=== PATIENT | female | born 1975 | race Caucasian/White ===

== ENCOUNTER 2020-12-08 09:09 | Inpatient (IN) | payer MEDICAID ==
[2020-12-01 15:10] LABS: BASOPHILS # (AUTO) 0.1 X10'3 (0-0.2); BASOPHILS % (AUTO) 0.9 % (0-1); EOSINOPHILS # (AUTO) 0.1 X10'3 (0-0.9); EOSINOPHILS % (AUTO) 1.1 % (0-6); LYMPHOCYTES # (AUTO) 2.2 X10'3 (1.1-4.8); LYMPHOCYTES % (AUTO) 26.4 % (21-51); MEAN CORPUSCULAR HEMOGLOBIN 28.8 PG (27.0-31.0); MEAN CORPUSCULAR HGB CONC 32.1 g/dL (33.0-36.5); MEAN CORPUSCULAR VOLUME 89.8 FL (78-98); MEAN PLATELET VOLUME 7.6 FL (7.4-10.4); MONOCYTES # (AUTO) 0.8 X10'3 (0-0.9); MONOCYTES % (AUTO) 9.2 % (2-12); NEUTROPHILS # (AUTO) 5.3 X10'3 (1.8-7.7); NEUTROPHILS % (AUTO) 62.4 % (42-75); PRE OP HEMATOCRIT 39.4 % (35.0-45.0); PRE OP HEMOGLOBIN 12.7 g/dL (12.0-16.0); PRE OP PLATELET COUNT 428 X10'3 (140-440); RED BLOOD COUNT 4.39 X10'6 (4.20-5.60); RED CELL DISTRIBUTION WIDTH 18.1 % (11.5-14.5)
[2020-12-01 15:25] LABS: ALBUMIN 3.4 G/DL (3.4-5.0); ALKALINE PHOSPHATASE 82 IU/L (46-116); BLOOD UREA NITROGEN 14 MG/DL (7-18); BUN/CREATININE RATIO 13.5 (6.6-38.0); CALCIUM 8.8 MG/DL (8.5-10.1); CHLORIDE 105 MMOL/L (99-107); CREATININE 1.04 MG/DL (0.40-0.90); PRE OP ALT 19 U/L (30-65); PRE OP ANION GAP 11 (8-16); PRE OP AST 13 U/L (10-37); PRE OP BILIRUB, TOTAL 0.2 MG/DL (0.0-1.0); PRE OP GLUCOSE 100 MG/DL (70-104); PRE OP SODIUM 141 MMOL/L (135-145); TOTAL CARBON DIOXIDE 25.4 MMOL/L (24-32); TOTAL PROTEIN 6.9 G/DL (6.4-8.2); eGFR 58 ML/MIN
[2020-12-01 15:27] LABS: PRE OP POTASSIUM 3.2 MMOL/L (3.4-5.1)
[~2020-12-08] VITALS: Ht 154.9 cm; Wt 60.7 kg
[2020-12-08] VITALS (18 sets, daily range): BP systolic 109–143; BP diastolic 47–82
[~2020-12-08 09:09] MED LIST: ALBU8.5H8 INH; ALEN70TA60 PO; BUDE10.2 INH; CALC-336 PO; CHOL10006 PO; CYCL-1 PO; FERR-116 PO; FOLI0.4T14 PO; HYDR-3965 PO; LIDOcaine 1% (10mg/ml) 2ml vial ONE; METH2.5T PO; OMEP-50 PO; PRED5TAB PO; TRAZ300T2 PO; VANCOMYCIN INJ 1000 MG in NORMAL SALINE 250ml IV.SOLN IV ONE; albuterol 2.5 MG/3 ML nebule NEB ONE; ceFAZolin 2gm in dextrose, iso 50 ML IV ONE; cefazolin/dext.iso 2gm/100ml 100 ML IV ONE; famotidine 20mg tablet PO ONE; ringers solution, lacted 1,000 ML IV SCH; tranexamic acid 650mg tablet PO ONE
[2020-12-08] MEDS ORDERED: ketorolac trometh. 30mg/ml inj. ONE (11:40)
[2020-12-08] MEDS ORDERED: ROPIVAcaine 0.5% (5mg/ml) 30ml vial ONE ×2 (11:40→12:57)
[2020-12-08] MEDS ORDERED: sevoflurane 250ml liquid IH ONE (12:09)
[2020-12-08] MEDS ORDERED: fentaNYL/PF 50MCG/1 ML 2ML syringe ONE (12:22)
[2020-12-08] MEDS ORDERED: midazolam 1 mg/ML 2ml injection ONE (12:24)
[2020-12-08] MEDS ORDERED: LIDOcaine 2% 5ml jelly ONE (12:44)
[2020-12-08] MEDS ORDERED: MIDAZolam 1 MG/ML 5ML VIAL ONE (12:44)
[2020-12-08] MEDS ORDERED: rocuronium 10mg/ml inj IV ONE (12:57)
[2020-12-08] MEDS ORDERED: LIDOcaine 1%/PF 5ML 10 MG/ML VIAL ONE (12:57)
[2020-12-08] MEDS ORDERED: hydrocortisone sod succ/PF 100mg/2ml inj. ONE (12:57)
[2020-12-08] MEDS ORDERED: LIDOcaine 2% (20mg/ml) 5ml vial ONE (12:57)
[2020-12-08] MEDS ORDERED: propofol inj 20 ML IV ONE ×2 (12:57→14:30)
[2020-12-08] MEDS ORDERED: ondansetron/PF 4mg/2ml inj ONE (13:06)
[2020-12-08] MEDS ORDERED: proCHLORperazine 10 MG/2 ml inj IV PRN (13:15)
[2020-12-08] MEDS ORDERED: labetalol 20mg/4ml (5mg/ml) syringe IV PRN (13:15)
[2020-12-08] MEDS ORDERED: ROPIVAcaine 0.2% (10 MG/5 ML) BOLUS INJECTION INTERSCALE PRN (13:15)
[2020-12-08] MEDS ORDERED: ondansetron/PF 4mg/2ml inj IV PRN ×2 (13:15→15:30)
[2020-12-08] MEDS ORDERED: morphine 4 MG/ML inj SYRINge IV PRN (13:15)
[2020-12-08] MEDS ORDERED: ringers solution, lacted 1,000 ML IV SCH (13:15)
[2020-12-08] MEDS ORDERED: acetaminophen 1,000mg/100ml IV 100 ML IV PRN (13:15)
[2020-12-08] MEDS ORDERED: hydrALAZINE 20mg/ml inj. IV PRN (13:15)
[2020-12-08] MEDS ORDERED: meperidine/PF 25mg/ml syringe IV PRN ×3 (13:15)
[2020-12-08] MEDS ORDERED: morphine 2 MG/ML inj. syringe IV PRN (13:15)
[2020-12-08] MEDS ORDERED: non-formulary drug (Alendronate Sodium* (Fosamax*) 1 TAB) PO SCH (15:30)
[2020-12-08] MEDS ORDERED: bisacodyl 10mg suppository rectal RC PRN (15:30)
[2020-12-08] MEDS ORDERED: oxyCODONE IR 5mg (immed. release) tablet PO PRN (15:30)
[2020-12-08] MEDS ORDERED: diphenhydrAMINE 25mg capsule PO PRN ×2 (15:30)
[2020-12-08] MEDS ORDERED: magnesium hydroxide 30ml (MOM) UD suspension PO PRN (15:30)
[2020-12-08] MEDS ORDERED: acetaminophen 325mg tablet PO PRN (15:30)
[2020-12-08] MEDS ORDERED: HYDROmorphone inj. 0.5 MG/0.5 ML DISP.SYRIN IV PRN (15:30)
--- NOTE | 2020-12-08 15:30 | NUR ---
Received from OR via BED, accompanied by Anesthesiologist DR GOLDEN and report given by Anesthesiologist. PATIENT WAKING UP, NO S/S OF PAIN, V/S WNL, SCD ON, 18G TO LUE, drsg to shoulder-CDI with COLD WRAP AND ON-Q CATHETER PRESENT, ARM IN A SLING, FINGERS-WARM, PINK, +CAP REFILL, PULSES PRESENT
[2020-12-08] MEDS: ROPIVAcaine 0.2%/PF PUMP/bolus 545 ML INTERSCALE SCH (16:00)
--- NOTE | 2020-12-08 16:50 | NUR ---
PT DOING WELL, VSS, RIGHT ARM STILL NUMB FROM BLOCK, PULSES PRESENT, +CAP REFILL, PINK, WARM FINGERS, DRSG-CDI, COLD PACK AND SLING IN PLACE, ON-Q ATTACHED AND RUNNING AT 2ML/HR-PT EDUCTION GIVEN REGARDING PUMP, TOLERATING FLUIDS, PIV 18G L A/C-LR RUNNING 100ML/HR, SCDS ON, INFORMED FRIEND OF TRANSPORT TO FLOOR, TAKEN WITH BELONGINGS TO RM 4013B, HOOKED UP TO MONITORS, BED LOW AND LOCKED, PRIMARY RN IN ROOM REPORT GIVEN TO BRIAN PALOMARES
[2020-12-08] MEDS: ceFAZolin/D5W- 1GM premix 50 ML IV SCH (18:42)
[2020-12-08] MEDS: albuterol 2.5 MG/3 ML nebule NEB PRN (18:48)
[2020-12-08] MEDS ORDERED: vancomycin/NS 1 GM ADD-VANTAGE 250 ML IV SCH (20:00)
[2020-12-08] MEDS ORDERED: budesonide 0.5mg/2ml UD nebule IH SCH (20:00)
[2020-12-08] MEDS: ferrous sulfate 325mg tablet PO SCH (20:33)
[2020-12-08] MEDS: potassium cl 20mEq in 1/2 NS 1,000 ML IV SCH (20:33)
[2020-12-08] MEDS: acetaminophen 325mg tablet PO SCH (20:34)
[2020-12-08] MEDS: cyclobenzaprine 10mg tablet PO SCH (20:34)
[2020-12-08] MEDS: sennosides 8.6mg tablet PO SCH (20:35)
[2020-12-08] MEDS: calcium carbonate 500mg tablet PO SCH (20:35)
[2020-12-08] MEDS: traZODone 50mg tablet PO SCH (20:38)
[2020-12-09] MEDS: oxyCODONE IR 5mg (immed. release) tablet PO PRN ×5 (00:46→23:12)
[2020-12-09] MEDS: ceFAZolin/D5W- 1GM premix 50 ML IV SCH (00:47)
[2020-12-09] MEDS: acetaminophen 325mg tablet PO SCH ×4 (01:51→20:42)
[2020-12-09 02:00] VITALS: BP 133/91
[2020-12-09] MEDS: HYDROmorphone 1 mg/ml syringe IV PRN ×3 (02:55→14:58)
[2020-12-09 06:00] VITALS: BP 135/89
[2020-12-09 06:14] LABS: BASOPHILS % (AUTO) 0.2 % (0-1); EOSINOPHILS % (AUTO) 0.4 % (0-6); HEMATOCRIT 27.4 % (35.0-45.0); LYMPHOCYTES # (AUTO) 1.6 X10'3 (1.1-4.8); LYMPHOCYTES % (AUTO) 15.6 % (21-51); MEAN CORPUSCULAR HEMOGLOBIN 29.7 PG (27.0-31.0); MEAN CORPUSCULAR VOLUME 90.1 FL (78-98); MEAN PLATELET VOLUME 8.2 FL (7.4-10.4); MONOCYTES # (AUTO) 0.7 X10'3 (0-0.9); NEUTROPHILS # (AUTO) 8.1 X10'3 (1.8-7.7); NEUTROPHILS % (AUTO) 76.8 % (42-75); PLATELET COUNT 239 X10'3 (140-440); RED BLOOD COUNT 3.04 X10'6 (4.20-5.60); WHITE BLOOD COUNT 10.5 X10'3 (4.5-11.0)
[2020-12-09 06:19] LABS: ANION GAP 8 (8-16); CHLORIDE 108 MMOL/L (99-107); POTASSIUM 4.4 MMOL/L (3.5-5.1); SODIUM 139 MMOL/L (135-145); TOTAL CARBON DIOXIDE 22.7 MMOL/L (24-32)
[2020-12-09] MEDS: albuterol 2.5 MG/3 ML nebule NEB PRN (07:18)
[2020-12-09] MEDS: potassium cl 20mEq in 1/2 NS 1,000 ML IV SCH ×4 (07:30→20:44)
[2020-12-09] MEDS: calcium carbonate 500mg tablet PO SCH ×3 (08:15→20:39)
[2020-12-09] MEDS: folic acid 1mg tablet PO SCH (08:17)
[2020-12-09] MEDS: cyclobenzaprine 10mg tablet PO SCH ×2 (08:17→20:40)
[2020-12-09] MEDS: predniSONE 5mg tablet PO SCH (08:17)
[2020-12-09] MEDS: aspirin 325mg tablet PO SCH (08:17)
[2020-12-09] MEDS: ferrous sulfate 325mg tablet PO SCH ×2 (08:18→20:39)
[2020-12-09 09:49] LABS: ANISOCYTOSIS 2+; BURR CELLS FEW; PLATELET ESTIMATE NORMAL; SCHISTOCYTES FEW
[2020-12-09 09:50] LABS: ELLIPTOCYTES FEW
[2020-12-09 10:00] VITALS: BP 135/95
[2020-12-09] MEDS ORDERED: benzocaine/menthol oral lozeng 1 EACH BOX MM PRN (11:00)
[2020-12-09] MEDS: ibuprofen tablet 400 MG TABLET PO SCH ×2 (12:52→16:41)
[2020-12-09 18:00] VITALS: BP 111/74
--- NOTE | 2020-12-09 19:03 | NUR ---
Patient in room ORTHO 4013. I have received report from Karin PALOMARES and had the opportunity to ask questions and assume patient care.
[2020-12-09] MEDS: traZODone 50mg tablet PO SCH (20:42)
[2020-12-09] MEDS: sennosides 8.6mg tablet PO SCH (20:42)
[2020-12-09 22:00] VITALS: BP 108/69
[2020-12-10] MEDS: acetaminophen 325mg tablet PO SCH ×3 (02:58→13:44)
[2020-12-10] MEDS: oxyCODONE IR 5mg (immed. release) tablet PO PRN ×3 (03:22→11:56)
[2020-12-10 06:00] VITALS: BP 129/80
--- NOTE | 2020-12-10 06:28 | NUR ---
Problems reprioritized. Patient report given, questions answered & plan of care reviewed with Karin PALOMARES.
[2020-12-10 06:46] LABS: BASOPHILS % (AUTO) 0.3 % (0-1); EOSINOPHILS # (AUTO) 0.3 X10'3 (0-0.9); EOSINOPHILS % (AUTO) 2.7 % (0-6); HEMATOCRIT 30.1 % (35.0-45.0); HEMOGLOBIN 9.6 g/dl (12.0-16.0); LYMPHOCYTES # (AUTO) 2.4 X10'3 (1.1-4.8); LYMPHOCYTES % (AUTO) 21.6 % (21-51); MEAN CORPUSCULAR HEMOGLOBIN 29.3 PG (27.0-31.0); MEAN CORPUSCULAR HGB CONC 31.8 g/dL (33.0-36.5); MEAN CORPUSCULAR VOLUME 92.1 FL (78-98); MEAN PLATELET VOLUME 8.5 FL (7.4-10.4); MONOCYTES # (AUTO) 0.6 X10'3 (0-0.9); MONOCYTES % (AUTO) 5.5 % (2-12); NEUTROPHILS # (AUTO) 7.9 X10'3 (1.8-7.7); NEUTROPHILS % (AUTO) 69.9 % (42-75); PLATELET COUNT 264 X10'3 (140-440); RED BLOOD COUNT 3.27 X10'6 (4.20-5.60); RED CELL DISTRIBUTION WIDTH 19.5 % (11.5-14.5); WHITE BLOOD COUNT 11.3 X10'3 (4.5-11.0)
--- NOTE | 2020-12-10 07:09 | NUR ---
Patient in room ORTHO 4013. I have received report from Thania PALOMARES and had the opportunity to ask questions and assume patient care.
[2020-12-10] MEDS: potassium cl 20mEq in 1/2 NS 1,000 ML IV SCH (07:30)
[2020-12-10] MEDS: cyclobenzaprine 10mg tablet PO SCH (08:02)
[2020-12-10] MEDS: aspirin 325mg tablet PO SCH (08:02)
[2020-12-10] MEDS: calcium carbonate 500mg tablet PO SCH ×2 (08:02→13:44)
[2020-12-10] MEDS: folic acid 1mg tablet PO SCH (08:03)
[2020-12-10] MEDS: predniSONE 5mg tablet PO SCH (08:03)
[2020-12-10] MEDS: ferrous sulfate 325mg tablet PO SCH (08:03)
[2020-12-10] MEDS: ibuprofen tablet 400 MG TABLET PO SCH ×2 (08:03→11:57)
[2020-12-10 09:23] LABS: ANISOCYTOSIS 2+; BURR CELLS 1+; ELLIPTOCYTES FEW; PLATELET ESTIMATE NORMAL; SCHISTOCYTES FEW
[2020-12-10 10:00] VITALS: BP 125/85
[2020-12-10] MEDS ORDERED: ASPI-1 PO (11:20)
[2020-12-10] MEDS: ROPIVAcaine 0.2%/PF PUMP/bolus 545 ML INTERSCALE SCH (15:20)
[2020-12-10] MEDS ORDERED: acetaminophen 325mg tablet PO PRN (15:30)
--- NOTE | 2020-12-10 15:35 | NUR ---
Pt discharged in stable condition with daughter. Pt refused to be wheeled in wheel chair. Iv removed tip intact, no complications. educated pt on discharge all questions/concerns reviewed and answered. Pt discharged with daughter in private vehicle
== END 2020-12-10 15:27 | disposition home or self-care (01) | DRG 315 ==
LOC: ORTHO 4S 09:09 → PCU 3S 09:09 → UNDOADMIN 09:09 → ORTHO 4S 15:29
PROVIDERS: ADMIT Orthopaedic Surgery; ATTEND Orthopaedic Surgery
PROC: 0RRJ00Z Replacement of Right Shoulder Joint with Reverse Ball and Socket Synthetic Substitute, Open Approach (ICD-10-PCS; principal; 2020-12-09)
PROC: 0LS30ZZ Reposition Right Upper Arm Tendon, Open Approach (ICD-10-PCS; 2020-12-09)
DX: M19.011 Primary osteoarthritis, right shoulder (principal); M87.811 Other osteonecrosis, right shoulder; D50.0 Iron deficiency anemia secondary to blood loss (chronic); Z20.822 Contact with and (suspected) exposure to COVID-19; M65.821 Other synovitis and tenosynovitis, right upper arm; T38.0X5A Adverse effect of glucocorticoids and synthetic analogues, initial encounter; M05.711 Rheumatoid arthritis with rheumatoid factor of right shoulder without organ or systems involvement; Y92.89 Other specified places as the place of occurrence of the external cause
CPT/HCPCS: 36415; 71046; 80051; 80053; 85008; 85025; 87081; 93005; 94640; 94760; 97110; 97161; 97530; A4565; A4618; A7000; C1776; G0378; J0690; J1170; J1720; J1885; J2001; J2250; J2405; J2704; J2795; J3010; J3370; J3480; J7120; J7512; J8610; Q0163; U0003

== ENCOUNTER 2021-05-28 14:16 | Outpatient (CLI) | payer MEDICAID ==
[2021-05-28 11:51] LABS: BASOPHILS % (AUTO) 0.3 % (0-1); EOSINOPHILS # (AUTO) 0.1 X10'3 (0-0.9); EOSINOPHILS % (AUTO) 0.7 % (0-6); LYMPHOCYTES % (AUTO) 7.7 % (21-51); MEAN CORPUSCULAR HGB CONC 31.5 g/dL (33.0-36.5); MEAN CORPUSCULAR VOLUME 82.6 FL (78-98); MEAN PLATELET VOLUME 8.1 FL (7.4-10.4); MONOCYTES # (AUTO) 0.6 X10'3 (0-0.9); MONOCYTES % (AUTO) 4.7 % (2-12); NEUTROPHILS # (AUTO) 11.8 X10'3 (1.8-7.7); NEUTROPHILS % (AUTO) 86.6 % (42-75); PRE OP HEMATOCRIT 34.1 % (35.0-45.0); PRE OP PLATELET COUNT 411 X10'3 (140-440); RED BLOOD COUNT 4.13 X10'6 (4.20-5.60); RED CELL DISTRIBUTION WIDTH 19.6 % (11.5-14.5)
[2021-05-28 11:54] LABS: PRE OP HEMOGLOBIN 10.7 g/dL (12.0-16.0)
[2021-05-28 12:00] LABS: ALBUMIN/GLOBULIN RATIO 0.9 (1.1-1.5); ALKALINE PHOSPHATASE 88 IU/L (46-116); BLOOD UREA NITROGEN 10 MG/DL (7-18); CALCIUM 8.5 MG/DL (8.5-10.1); CHLORIDE 106 MMOL/L (99-107); CREATININE 0.83 MG/DL (0.40-0.90); PRE OP ALT 19 U/L (30-65); PRE OP ANION GAP 9 (8-16); PRE OP AST 15 U/L (10-37); PRE OP BILIRUB, TOTAL 0.2 MG/DL (0.0-1.0); PRE OP GLUCOSE 95 MG/DL (70-104); PRE OP POTASSIUM 4.2 MMOL/L (3.4-5.1); PRE OP SODIUM 139 MMOL/L (135-145); TOTAL CARBON DIOXIDE 24.3 MMOL/L (24-32); TOTAL PROTEIN 6.4 G/DL (6.4-8.2); eGFR 75 ML/MIN
[2021-05-28 13:13] LABS: ANISOCYTOSIS 2+; HYPOCHROMASIA 1+; PLATELET ESTIMATE NORMAL; POIKILOCYTOSIS 1+; POLYCHROMASIA FEW
[~2021-05-28 14:16] MED LIST changes: +ALBU8.5H17 INH; -ALBU8.5H8 INH; +ASPI-1 PO; -HYDR-3965 PO; +HYDR-3972 PO; +IBUP-1986 PO; -LIDOcaine 1% (10mg/ml) 2ml vial ONE; +UMEC1DIS; -VANCOMYCIN INJ 1000 MG in NORMAL SALINE 250ml IV.SOLN IV ONE; -albuterol 2.5 MG/3 ML nebule NEB ONE; -ceFAZolin 2gm in dextrose, iso 50 ML IV ONE; -cefazolin/dext.iso 2gm/100ml 100 ML IV ONE; -famotidine 20mg tablet PO ONE; +nystatin; -ringers solution, lacted 1,000 ML IV SCH; -tranexamic acid 650mg tablet PO ONE
== END 2021-05-28 23:59 | disposition home or self-care (01) ==
LOC: PRE-OP 14:16 → EDSTATUS 06-03 10:00
PROVIDERS: ATTEND Orthopaedic Surgery
DX: M17.11 Unilateral primary osteoarthritis, right knee (principal)
CPT/HCPCS: 36415; 80053; 85008; 85025; 87081

== ENCOUNTER 2021-09-07 11:00 | Inpatient (IN) | payer MEDICAID ==
[2021-08-31 14:04] LABS: BASOPHILS # (AUTO) 0.1 X10'3 (0-0.2); BASOPHILS % (AUTO) 0.7 % (0-1); EOSINOPHILS # (AUTO) 0.1 X10'3 (0-0.9); EOSINOPHILS % (AUTO) 0.5 % (0-6); HEMOGLOBIN 12.2 g/dl (12.0-16.0); LYMPHOCYTES # (AUTO) 1.5 X10'3 (1.1-4.8); LYMPHOCYTES % (AUTO) 15.3 % (21-51); MEAN CORPUSCULAR HEMOGLOBIN 26.3 PG (27.0-31.0); MEAN CORPUSCULAR HGB CONC 32.2 g/dL (33.0-36.5); MEAN CORPUSCULAR VOLUME 81.9 FL (78-98); MEAN PLATELET VOLUME 8.6 FL (7.4-10.4); MONOCYTES # (AUTO) 0.4 X10'3 (0-0.9); MONOCYTES % (AUTO) 4.5 % (2-12); NEUTROPHILS # (AUTO) 7.5 X10'3 (1.8-7.7); PLATELET COUNT 312 X10'3 (140-440); RED BLOOD COUNT 4.64 X10'6 (4.20-5.60); RED CELL DISTRIBUTION WIDTH 17.8 % (11.5-14.5); WHITE BLOOD COUNT 9.6 X10'3 (4.5-11.0)
[2021-08-31 14:23] LABS: HCG SERUM QL NEGATIVE
[2021-08-31 14:26] LABS: ALANINE AMINOTRANSFERASE 15 U/L (12-78); ALBUMIN 3.2 G/DL (3.4-5.0); ALBUMIN/GLOBULIN RATIO 0.9 (1.1-1.5); ALKALINE PHOSPHATASE 83 IU/L (46-116); ANION GAP 8 (8-16); ASPARTATE AMINO TRANSFERASE 13 U/L (10-37); BILIRUBIN,TOTAL 0.2 MG/DL (0.1-1.0); BLOOD UREA NITROGEN 14 MG/DL (7-18); BUN/CREATININE RATIO 17.1 (6.6-38.0); CALCIUM 8.9 MG/DL (8.5-10.1); CHLORIDE 104 MMOL/L (99-107); CREATININE 0.82 MG/DL (0.40-0.90); GLUCOSE 93 MG/DL (70-104); POTASSIUM 4.6 MMOL/L (3.5-5.1); SODIUM 139 MMOL/L (135-145); TOTAL CARBON DIOXIDE 27.5 MMOL/L (24-32); TOTAL PROTEIN 6.9 G/DL (6.4-8.2); eGFR 76 ML/MIN
[~2021-09-07] VITALS: Ht 154.9 cm; Wt 54.7 kg
[~2021-09-07 11:00] MED LIST changes: -ALBU8.5H17 INH; -ASPI-1 PO; -BUDE10.2 INH; -CALC-336 PO; -FOLI0.4T14 PO; -TRAZ300T2 PO; -UMEC1DIS; +UMEC1DIS PO; +VANCOMYCIN INJ 1000 MG in NORMAL SALINE 250ml IV.SOLN IV ONE; +albuterol 2.5 MG/3 ML nebule NEB ONE; +cefazolin/dext.iso 2gm/50ml IV ONE; +famotidine 20mg tablet PO ONE; -nystatin; +ringers solution, lacted 1,000 ML IV SCH; +tranexamic acid 650mg tablet PO ONE
[2021-09-15] MEDS ORDERED: FOLI1TAB16 PO (15:29)
[2021-09-15] MEDS ORDERED: CALC-225 PO (15:29)
[2021-09-15] MEDS ORDERED: TRAZ-256 PO (15:30)
[2021-09-15] MEDS ORDERED: METH2.5T PO (16:53)
[2021-09-16] VITALS (18 sets, daily range): BP systolic 94–133; BP diastolic 63–84
[2021-09-16] MEDS ORDERED: VANCOMYCIN INJ 1000 MG in NORMAL SALINE 250ml IV.SOLN IV ONE (05:30)
[2021-09-16] MEDS ORDERED: famotidine 20mg tablet PO ONE (05:30)
[2021-09-16] MEDS ORDERED: tranexamic acid 650mg tablet PO ONE (05:30)
[2021-09-16] MEDS ORDERED: cefazolin/dext.iso 2gm/50ml IV ONE (05:30)
[2021-09-16] MEDS ORDERED: albuterol 2.5 MG/3 ML nebule NEB ONE ×2 (05:30)
[2021-09-16] MEDS ORDERED: ketorolac trometh. 30mg/ml inj. ONE (06:55)
[2021-09-16] MEDS ORDERED: ROPIVAcaine 0.5% (5mg/ml) 30ml vial ONE (06:55)
[2021-09-16] MEDS ORDERED: tetracaine 1% (10mg/ml) pres. free inj. ONE (07:08)
[2021-09-16] MEDS ORDERED: MIDAZolam 1 MG/ML 5ML VIAL ONE (08:12)
[2021-09-16] MEDS ORDERED: fentaNYL/PF 50MCG/1 ML 2ML syringe ONE (08:12)
[2021-09-16] MEDS ORDERED: propofol inj 20 ML IV ONE ×2 (08:13→08:25)
[2021-09-16] MEDS ORDERED: LIDOcaine 2% (20mg/ml) 5ml vial ONE ×2 (08:14→08:25)
[2021-09-16] MEDS ORDERED: metoprolol tartrate 1mg/ml inj IV ONE (08:50)
[2021-09-16] MEDS ORDERED: labetalol 20mg/4ml (5mg/ml) syringe IV PRN (09:00)
[2021-09-16] MEDS ORDERED: morphine 2 MG/ML inj. syringe IV PRN (09:00)
[2021-09-16] MEDS ORDERED: ringers solution, lacted 1,000 ML IV SCH (09:00)
[2021-09-16] MEDS ORDERED: hydrALAZINE 20mg/ml inj. IV PRN (09:00)
[2021-09-16] MEDS ORDERED: morphine 4 MG/ML inj SYRINge IV PRN (09:00)
[2021-09-16] MEDS ORDERED: fentaNYL/PF 50MCG/1 ML 2ML syringe IV PRN ×2 (09:00)
[2021-09-16] MEDS ORDERED: ondansetron/PF 4mg/2ml inj IV PRN ×2 (09:00→09:55)
[2021-09-16] MEDS ORDERED: dexamethasone sod phosphate 4mg/ml inj. ONE (09:15)
--- NOTE | 2021-09-16 09:54 | NUR ---
Received from OR via SURGICAL BED , accompanied by Anesthesiologist MAYRA and report given by Anesthesiolgist. PATIENT WITH 18G PIV IN LEFT UE, LR AT 100. PATIENT WITH DANIELLE CATHETER PRESENT. VSS. SCDS DONNED. PATIENT WITH RIGHT KNEE DRESSING/ KNEE WRAP PRESENT. + DP ON RIGHT FOOT. DENIES PAIN. SENSATION LEVEL AT T8 AT THIS TIME. Addendum: 09/16/21 at 1006 by Dustin Pitt RN, RN Amended: Links added.
[2021-09-16] MEDS ORDERED: diphenhydrAMINE 25mg capsule PO PRN ×2 (09:55)
[2021-09-16] MEDS ORDERED: acetaminophen 325mg tablet PO PRN (09:55)
[2021-09-16] MEDS ORDERED: bisacodyl 10mg suppository rectal RC PRN (09:55)
[2021-09-16] MEDS ORDERED: non-formulary drug (Alendronate Sodium* (Fosamax*) 70 MG) PO SCH (09:55)
[2021-09-16] MEDS ORDERED: HYDROmorphone inj. 0.5 MG/0.5 ML DISP.SYRIN IV PRN (09:55)
[2021-09-16] MEDS ORDERED: magnesium hydroxide 30ml (MOM) UD suspension PO PRN (09:55)
--- NOTE | 2021-09-16 11:01 | NUR ---
Received report. Paged stage technician to place trapeze on bed as there is not one.
--- NOTE | 2021-09-16 11:04 | NUR ---
PATIENT HAS MET ALL CRITERIA FOR TRANSFER TO THE SURGICAL/DEBBIE/PCU/ORTHO/ICU FLOOR. VSS. DRESSINGS INTACT. BED LOW, CALL LIGHT PRESENT AND 2 RAILS UP. RN PRESENT TO ACCEPT CARE OF PATIENT AND REPORT HAS BEEN CALLED. ALL QUESTIONS ANSWERED TO ACCEPTING MARIELLE MCKENNA. Addendum: 09/16/21 at 1116 by Dustin Stacy - MARIELLE RN Amended: Links added.
--- NOTE | 2021-09-16 11:17 | NUR ---
Pt. arrived to floor. Switched to trapeze bed, VS taken and WNL, placed on post-op VS, oriented to room and call light within reach.
[2021-09-16 12:11] LABS: BASOPHILS % (AUTO) 0.2 % (0-1); EOSINOPHILS % (AUTO) 0.1 % (0-6); HEMOGLOBIN 9.4 g/dl (12.0-16.0); LYMPHOCYTES % (AUTO) 10.4 % (21-51); MEAN CORPUSCULAR HEMOGLOBIN 26.4 PG (27.0-31.0); MEAN CORPUSCULAR HGB CONC 32.4 g/dL (33.0-36.5); MEAN CORPUSCULAR VOLUME 81.5 FL (78-98); MEAN PLATELET VOLUME 8.7 FL (7.4-10.4); MONOCYTES # (AUTO) 0.5 X10'3 (0-0.9); MONOCYTES % (AUTO) 5.1 % (2-12); NEUTROPHILS # (AUTO) 8.4 X10'3 (1.8-7.7); NEUTROPHILS % (AUTO) 84.2 % (42-75); PLATELET COUNT 248 X10'3 (140-440); RED BLOOD COUNT 3.56 X10'6 (4.20-5.60); RED CELL DISTRIBUTION WIDTH 17.9 % (11.5-14.5)
[2021-09-16 12:18] LABS: ALANINE AMINOTRANSFERASE 16 U/L (12-78); ALBUMIN 2.4 G/DL (3.4-5.0); ALBUMIN/GLOBULIN RATIO 0.8 (1.1-1.5); ALKALINE PHOSPHATASE 60 IU/L (46-116); ANION GAP 7 (8-16); ASPARTATE AMINO TRANSFERASE 25 U/L (10-37); BILIRUBIN,TOTAL 0.2 MG/DL (0.1-1.0); BLOOD UREA NITROGEN 10 MG/DL (7-18); BUN/CREATININE RATIO 14.5 (6.6-38.0); CALCIUM 7.8 MG/DL (8.5-10.1); CHLORIDE 105 MMOL/L (99-107); CREATININE 0.69 MG/DL (0.40-0.90); GLUCOSE 129 MG/DL (70-104); POTASSIUM 3.8 MMOL/L (3.5-5.1); SODIUM 137 MMOL/L (135-145); TOTAL PROTEIN 5.5 G/DL (6.4-8.2); eGFR > 90 ML/MIN
[2021-09-16] MEDS: calcium carbonate 500mg tablet PO SCH ×2 (14:27→17:40)
[2021-09-16] MEDS: ibuprofen tablet 400 MG TABLET PO SCH ×2 (14:28→17:40)
[2021-09-16] MEDS: acetaminophen 325mg tablet PO SCH ×2 (14:28→20:22)
[2021-09-16] MEDS: potassium cl 20mEq in 1/2 NS 1,000 ML IV SCH ×2 (14:28→17:55)
[2021-09-16] MEDS: ceFAZolin/D5W- 1GM premix 50 ML IV SCH (16:10)
[2021-09-16] MEDS: HYDROcodone/acetaminophen 10/325mg tab PO PRN (17:42)
--- NOTE | 2021-09-16 18:20 | NUR ---
Gave report to Nadiya PALOMARES.
[2021-09-16] MEDS ORDERED: vancomycin/NS 1 GM ADD-VANTAGE 250 ML IV SCH (20:00)
[2021-09-16] MEDS: sennosides 8.6mg tablet PO SCH (20:21)
[2021-09-16] MEDS: traZODone 50mg tablet PO SCH (20:22)
[2021-09-16] MEDS: cyclobenzaprine 10mg tablet PO PRN (20:34)
[2021-09-16] MEDS: oxyCODONE IR 5mg (immed. release) tablet PO PRN (20:35)
[2021-09-17] VITALS: BP 134/77
[2021-09-17] MEDS: ceFAZolin/D5W- 1GM premix 50 ML IV SCH (00:02)
[2021-09-17] MEDS: albuterol 2.5 MG/3 ML nebule NEB PRN ×3 (00:37→15:45)
[2021-09-17] MEDS: potassium cl 20mEq in 1/2 NS 1,000 ML IV SCH ×3 (01:55→19:37)
[2021-09-17] MEDS: acetaminophen 325mg tablet PO SCH ×4 (02:36→21:56)
[2021-09-17] MEDS: HYDROmorphone 1 mg/ml syringe IV PRN ×2 (04:22→11:22)
--- NOTE | 2021-09-17 06:43 | NUR ---
Report given to patito PALOMARES
[2021-09-17] MEDS: ANORO ELLIPTA PO SCH (07:13)
[2021-09-17] MEDS: aspirin 325mg tablet PO SCH (07:46)
[2021-09-17] MEDS: folic acid 1mg tablet PO SCH (07:46)
[2021-09-17] MEDS: predniSONE 1 mg tablet PO SCH (07:46)
[2021-09-17] MEDS: ferrous sulfate 325mg tablet PO SCH (07:46)
[2021-09-17] MEDS: calcium carbonate 500mg tablet PO SCH ×3 (07:46→17:38)
[2021-09-17] MEDS: cyclobenzaprine 10mg tablet PO PRN ×3 (07:46→21:57)
[2021-09-17] MEDS: HYDROcodone/acetaminophen 10/325mg tab PO PRN (07:47)
[2021-09-17] MEDS: ibuprofen tablet 400 MG TABLET PO SCH ×3 (07:48→17:38)
[2021-09-17] MEDS: predniSONE 5mg tablet PO SCH (07:48)
[2021-09-17 07:56] LABS: BASOPHILS % (AUTO) 0.3 % (0-1); EOSINOPHILS # (AUTO) 0.1 X10'3 (0-0.9); EOSINOPHILS % (AUTO) 0.5 % (0-6); HEMATOCRIT 29.2 % (35.0-45.0); HEMOGLOBIN 9.6 g/dl (12.0-16.0); LYMPHOCYTES % (AUTO) 30.4 % (21-51); MEAN CORPUSCULAR HEMOGLOBIN 26.4 PG (27.0-31.0); MEAN CORPUSCULAR HGB CONC 32.7 g/dL (33.0-36.5); MEAN CORPUSCULAR VOLUME 80.9 FL (78-98); MEAN PLATELET VOLUME 8.9 FL (7.4-10.4); MONOCYTES # (AUTO) 0.8 X10'3 (0-0.9); MONOCYTES % (AUTO) 8.2 % (2-12); NEUTROPHILS % (AUTO) 60.6 % (42-75); PLATELET COUNT 304 X10'3 (140-440); RED BLOOD COUNT 3.61 X10'6 (4.20-5.60); RED CELL DISTRIBUTION WIDTH 17.8 % (11.5-14.5)
[2021-09-17 08:00] VITALS: BP 118/78
[2021-09-17 08:18] LABS: ANION GAP 7 (8-16); CHLORIDE 104 MMOL/L (99-107); POTASSIUM 3.8 MMOL/L (3.5-5.1); SODIUM 137 MMOL/L (135-145); TOTAL CARBON DIOXIDE 26.5 MMOL/L (24-32)
[2021-09-17] MEDS: oxyCODONE IR 5mg (immed. release) tablet PO PRN ×3 (10:06→21:54)
[2021-09-17 11:13] VITALS: BP 137/77
[2021-09-17 13:58] LABS: URINE AMPHETAMINE SCREEN NEGATIVE (Neg); URINE BARBITUATE SCREEN NEGATIVE (Neg); URINE BENZODIAZEPINES SCREEN NEGATIVE (Neg); URINE CANNABINOID SCREEN POSITIVE (Neg); URINE COCAINE SCREEN NEGATIVE (Neg); URINE METHADONE SCREEN NEGATIVE (Neg); URINE OPIATE SCREEN POSITIVE (Neg); URINE PHENCYCLIDINE SCREEN NEGATIVE (Neg)
--- NOTE | 2021-09-17 15:56 | NUR ---
Pt s/p right TKA seen at bedside for written and verbal protein education. Pt endorses a good appetite, states meals are good on vegan diet. Pt denies food allergies or difficulty chewing/swallowing. Pt provided with RD contact information and encouraged to reach out if needed. Will remain available. Addendum: 09/17/21 at [address] Amended: Links added.
--- NOTE | 2021-09-17 18:42 | NUR ---
Gave report to Hanh Schafer RN.
--- NOTE | 2021-09-17 18:45 | NUR ---
Patient in room [facility] 360. I have received report from CLARISA PALOMARES and had the opportunity to ask questions and assume patient care.
[2021-09-17 20:00] VITALS: BP 125/71
[2021-09-17] MEDS: sennosides 8.6mg tablet PO SCH (21:00)
[2021-09-17] MEDS: traZODone 50mg tablet PO SCH (21:53)
[2021-09-18] VITALS: BP 118/74
[2021-09-18] MEDS: potassium cl 20mEq in 1/2 NS 1,000 ML IV SCH (01:55)
[2021-09-18] MEDS: acetaminophen 325mg tablet PO SCH ×2 (02:00→08:37)
[2021-09-18] MEDS: oxyCODONE IR 5mg (immed. release) tablet PO PRN ×3 (03:35→16:56)
[2021-09-18] MEDS: HYDROcodone/acetaminophen 10/325mg tab PO PRN ×2 (05:00→20:44)
[2021-09-18 05:22] VITALS: BP 118/74
--- NOTE | 2021-09-18 06:30 | NUR ---
Problems reprioritized. Patient report given, questions answered & plan of care reviewed with MARCIO PALOMARES.
--- NOTE | 2021-09-18 07:03 | NUR ---
I have received report from MARIELLE Baldwin and had the opportunity to ask questions and assume patient care.
[2021-09-18 08:00] VITALS: BP 154/85
[2021-09-18] MEDS: ferrous sulfate 325mg tablet PO SCH (08:00)
[2021-09-18] MEDS: ANORO ELLIPTA PO SCH (08:00)
[2021-09-18] MEDS: ibuprofen tablet 400 MG TABLET PO SCH ×3 (08:36→16:57)
[2021-09-18] MEDS: folic acid 1mg tablet PO SCH (08:36)
[2021-09-18] MEDS: aspirin 325mg tablet PO SCH (08:37)
[2021-09-18] MEDS: calcium carbonate 500mg tablet PO SCH ×3 (08:38→16:56)
[2021-09-18] MEDS: predniSONE 1 mg tablet PO SCH (08:39)
[2021-09-18] MEDS: albuterol 2.5 MG/3 ML nebule NEB PRN (08:58)
[2021-09-18] MEDS: predniSONE 5mg tablet PO SCH (09:13)
[2021-09-18] MEDS ORDERED: acetaminophen 325mg tablet PO PRN (09:55)
--- NOTE | 2021-09-18 10:15 | NUR ---
Report given to MARIELLE Shah
[2021-09-18 11:00] VITALS: BP 123/87
[2021-09-18] MEDS: cyclobenzaprine 10mg tablet PO PRN ×2 (13:30→20:42)
[2021-09-18 20:00] VITALS: BP 124/73
[2021-09-18] MEDS: traZODone 50mg tablet PO SCH (20:37)
[2021-09-18] MEDS: sennosides 8.6mg tablet PO SCH (20:37)
[2021-09-19] VITALS: BP 137/83
[2021-09-19] MEDS: HYDROmorphone 1 mg/ml syringe IV PRN ×2 (03:08→20:05)
--- NOTE | 2021-09-19 06:51 | NUR ---
Patient in room [facility] 360. I have received report from Yocasta RN Traveler and had the opportunity to ask questions and assume patient care.
[2021-09-19 08:00] VITALS: BP 126/88
[2021-09-19] MEDS: ANORO ELLIPTA PO SCH (08:00)
[2021-09-19] MEDS: ferrous sulfate 325mg tablet PO SCH (08:00)
[2021-09-19] MEDS: albuterol 2.5 MG/3 ML nebule NEB PRN (08:09)
[2021-09-19] MEDS: HYDROcodone/acetaminophen 10/325mg tab PO PRN (08:35)
[2021-09-19] MEDS: calcium carbonate 500mg tablet PO SCH ×3 (08:35→17:42)
[2021-09-19] MEDS: folic acid 1mg tablet PO SCH (08:35)
[2021-09-19] MEDS: predniSONE 5mg tablet PO SCH (08:36)
[2021-09-19] MEDS: aspirin 325mg tablet PO SCH (08:36)
[2021-09-19] MEDS: ibuprofen tablet 400 MG TABLET PO SCH ×3 (08:36→17:42)
[2021-09-19] MEDS: predniSONE 1 mg tablet PO SCH (08:36)
[2021-09-19 11:00] VITALS: BP 111/76
[2021-09-19] MEDS: cyclobenzaprine 10mg tablet PO PRN ×2 (11:31→17:42)
[2021-09-19] MEDS: benzonatate 100mg capsule PO PRN ×2 (11:31→17:42)
--- NOTE | 2021-09-19 18:37 | NUR ---
Problems reprioritized. Patient report given, questions answered & plan of care reviewed with Yocasta RN traveler.
[2021-09-19 20:00] VITALS: BP 142/76
[2021-09-19] MEDS: sennosides 8.6mg tablet PO SCH (20:04)
[2021-09-19] MEDS: traZODone 50mg tablet PO SCH (20:05)
[2021-09-20] VITALS: BP 115/77
--- NOTE | 2021-09-20 06:50 | NUR ---
Patient in room [facility] 360B. I have received report from MARIELLE ROBLEDO and had the opportunity to ask questions and assume patient care.
[2021-09-20 07:00] VITALS: BP 124/88
[2021-09-20] MEDS: ANORO ELLIPTA PO SCH (08:00)
[2021-09-20] MEDS: aspirin 325mg tablet PO SCH (08:25)
[2021-09-20] MEDS: ibuprofen tablet 400 MG TABLET PO SCH ×2 (08:26→13:01)
[2021-09-20] MEDS: predniSONE 5mg tablet PO SCH (08:26)
[2021-09-20] MEDS: predniSONE 1 mg tablet PO SCH (08:26)
[2021-09-20] MEDS: folic acid 1mg tablet PO SCH (08:26)
[2021-09-20] MEDS: calcium carbonate 500mg tablet PO SCH ×2 (08:26→13:03)
[2021-09-20] MEDS: benzonatate 100mg capsule PO PRN (08:26)
[2021-09-20] MEDS: ferrous sulfate 325mg tablet PO SCH (08:26)
[2021-09-20] MEDS: oxyCODONE IR 5mg (immed. release) tablet PO PRN ×2 (08:26→13:02)
[2021-09-20 11:00] VITALS: BP 118/62
--- NOTE | 2021-09-20 14:36 | NUR ---
PATIENT STABLE AND APPROPRIATE FOR DISCHARGE, IV TAKEN OUT, NEW MEDS E-SCRIPTED TO PREFERRED PHARMACY, EDUCATION GIVEN, ALL BELONGINGS SENT WITH PATIENT, PATIENT TAKEN TO LOBBY BY WHEELCHAIR TO AWAITING CAR WHERE FAMILY MEMBER WILL TAKE PATIENT HOME
--- NOTE | 2021-09-20 14:38 | NUR ---
Initial: Pt s/p R TKA this admit, currently on Vegan diet w/ mostly 100% intake of meals since 09/18 meeting nutrient needs at this time. LBM 09/19 receiving routine senna. No nutrition intervention implemented at this time, will continue to monitor. Recs: 1. Continue Vegan diet as tolerated 2. Bowel care per rx 3. Weekly wts Addendum: 09/20/21 at [address] Amended: Links added.
== END 2021-09-20 14:36 | disposition home or self-care (01) | DRG 326 ==
LOC: PAS IN 09-16 06:08 → UNDOADMIN 09-16 06:08 → PAS IN 09-16 11:15 → SUR 3N 09-16 11:15 → UNDODISIN 09-17 14:25 → UNDOADMIN 09-17 19:57 → SUR 3N 09-17 19:57 → UNDODISIN 09-20 14:36
PROVIDERS: ADMIT Orthopaedic Surgery; ATTEND Orthopaedic Surgery
PROC: 8E0YXBZ Computer Assisted Procedure of Lower Extremity (ICD-10-PCS; 2021-09-16)
PROC: 8E0Y0CZ Robotic Assisted Procedure of Lower Extremity, Open Approach (ICD-10-PCS; 2021-09-16)
PROC: 3E0T3BZ Introduction of Anesthetic Agent into Peripheral Nerves and Plexi, Percutaneous Approach (ICD-10-PCS; 2021-09-16)
PROC: 3E0T33Z Introduction of Anti-inflammatory into Peripheral Nerves and Plexi, Percutaneous Approach (ICD-10-PCS; 2021-09-16)
PROC: 0SRC0JZ Replacement of Right Knee Joint with Synthetic Substitute, Open Approach (ICD-10-PCS; principal; 2021-09-16 07:35)
DX: M17.11 Unilateral primary osteoarthritis, right knee (principal); F32.A Depression, unspecified; F41.9 Anxiety disorder, unspecified; Z98.51 Tubal ligation status; Z87.891 Personal history of nicotine dependence
CPT/HCPCS: 36415; 80051; 80053; 80305; 82948; 84703; 85025; 87081; 87635; 94640; 94760; 97110; 97116; 97161; 97530; G0378; J0690; J1100; J1170; J1885; J2250; J2704; J2795; J3010; J3370; J3480; J3490; J7120; J7512; J8610; U0003; U0005

== ENCOUNTER 2021-10-06 16:45 | Inpatient (IN) | payer MEDICARE, MEDICAID ==
[~2021-10-06] VITALS: Ht 154.9 cm; Wt 54.5 kg
[~2021-10-06 16:45] MED LIST changes: +CALC-225 PO; +FOLI1TAB27 PO; -OMEP-50 PO; +OMEP20CA16 PO; +TRAZ-256 PO; -VANCOMYCIN INJ 1000 MG in NORMAL SALINE 250ml IV.SOLN IV ONE; -albuterol 2.5 MG/3 ML nebule NEB ONE; -cefazolin/dext.iso 2gm/50ml IV ONE; -famotidine 20mg tablet PO ONE; -ringers solution, lacted 1,000 ML IV SCH; -tranexamic acid 650mg tablet PO ONE
--- NOTE | 2021-10-06 16:50 | NUR ---
Pt arrived direct admit to room 341, notified Dr Hawkins of arrival, he will put in orders.
--- NOTE | 2021-10-06 18:40 | NUR ---
Patient in room [facility] 341. I have received report from ISAAC PALOMARES and had the opportunity to ask questions and assume patient care.
[2021-10-06] MEDS ORDERED: ASPI-100 PO (19:53)
[2021-10-06 20:00] VITALS: BP 111/70
[2021-10-06] MEDS: sodium chloride 0.45% 1,000 ML IV SCH (20:26)
[2021-10-06 20:50] LABS: BASOPHILS # (AUTO) 0.1 X10'3 (0-0.2); BASOPHILS % (AUTO) 0.6 % (0-1); EOSINOPHILS # (AUTO) 0.1 X10'3 (0-0.9); EOSINOPHILS % (AUTO) 0.8 % (0-6); LYMPHOCYTES # (AUTO) 2.5 X10'3 (1.1-4.8); LYMPHOCYTES % (AUTO) 29.5 % (21-51); MEAN CORPUSCULAR HEMOGLOBIN 25.6 PG (27.0-31.0); MEAN CORPUSCULAR HGB CONC 31.8 g/dL (33.0-36.5); MEAN CORPUSCULAR VOLUME 80.4 FL (78-98); MEAN PLATELET VOLUME 7.8 FL (7.4-10.4); MONOCYTES % (AUTO) 12.2 % (2-12); NEUTROPHILS # (AUTO) 4.7 X10'3 (1.8-7.7); NEUTROPHILS % (AUTO) 56.9 % (42-75); PRE OP HEMATOCRIT 29.3 % (35.0-45.0); PRE OP PLATELET COUNT 540 X10'3 (140-440); RED BLOOD COUNT 3.64 X10'6 (4.20-5.60); RED CELL DISTRIBUTION WIDTH 18.6 % (11.5-14.5)
[2021-10-06 20:54] LABS: PRE OP HEMOGLOBIN 9.3 g/dL (12.0-16.0)
[2021-10-06 21:16] LABS: ALBUMIN 2.9 G/DL (3.4-5.0); BLOOD UREA NITROGEN 17 MG/DL (7-18); BUN/CREATININE RATIO 19.3 (6.6-38.0); C-REACTIVE PROTEIN 1.71 MG/DL (0.0-0.5); CALCIUM 8.3 MG/DL (8.5-10.1); CHLORIDE 102 MMOL/L (99-107); CREATININE 0.88 MG/DL (0.40-0.90); PRE OP ANION GAP 7 (8-16); PRE OP POTASSIUM 4.6 MMOL/L (3.4-5.1); PRE OP SODIUM 135 MMOL/L (135-145); TOTAL CARBON DIOXIDE 26.4 MMOL/L (24-32); eGFR 70 ML/MIN
[2021-10-06 21:22] LABS: PRE OP GLUCOSE 128 MG/DL (70-104)
[2021-10-07] VITALS (18 sets, daily range): BP systolic 85–112; BP diastolic 41–85
[2021-10-07] MEDS: ceFAZolin/D5W- 1GM premix 50 ML IV SCH ×3 (00:10→16:22)
[2021-10-07 00:27] LABS: PLATELET ESTIMATE INCREASED
[2021-10-07 00:28] LABS: ANISOCYTOSIS 2+; ELLIPTOCYTES FEW; POLYCHROMASIA FEW
[2021-10-07] MEDS: sodium chloride 0.45% 1,000 ML IV SCH (06:01)
--- NOTE | 2021-10-07 06:20 | NUR ---
Patient in room [facility] 341. I have received report from MARIELLE Ortiz and had the opportunity to ask questions and assume patient care.
[2021-10-07 06:30] LABS: APTT 27 SECONDS (22-32)
--- NOTE | 2021-10-07 06:30 | NUR ---
Problems reprioritized. Patient report given, questions answered & plan of care reviewed with CASTRO PALOMARES.
[2021-10-07] MEDS ORDERED: cloNIDine hcl/PF 100mcg/ml inj ONE (06:42)
[2021-10-07] MEDS ORDERED: ketorolac trometh. 30mg/ml inj. ONE (06:42)
[2021-10-07] MEDS ORDERED: ROPIVAcaine 0.5% (5mg/ml) 30ml vial ONE (06:42)
--- NOTE | 2021-10-07 07:05 | NUR ---
Report called to Tammy PALOMARES in recovery. Pt prepped and ready for transport to OR.
--- NOTE | 2021-10-07 07:12 | NUR ---
Pt transported to OR on hospital bed. All belongings left in room 341.
[2021-10-07] MEDS ORDERED: MIDAZolam 1 MG/ML 5ML VIAL ONE (07:18)
[2021-10-07] MEDS ORDERED: fentaNYL/PF 50MCG/1 ML 2ML syringe ONE (07:18)
[2021-10-07] MEDS ORDERED: propofol inj 20 ML IV ONE ×2 (07:36→08:16)
[2021-10-07] MEDS ORDERED: vancomycin 1,000mg inj ONE (07:46)
[2021-10-07] MEDS ORDERED: morphine 4 MG/ML inj SYRINge IV PRN (07:55)
[2021-10-07] MEDS ORDERED: morphine 2 MG/ML inj. syringe IV PRN (07:55)
[2021-10-07] MEDS ORDERED: proCHLORperazine 10 MG/2 ml inj IV PRN (07:55)
[2021-10-07] MEDS ORDERED: ringers solution, lacted 1,000 ML IV SCH (07:55)
[2021-10-07] MEDS ORDERED: ondansetron/PF 4mg/2ml inj IV PRN ×2 (07:55→08:40)
[2021-10-07] MEDS ORDERED: meperidine/PF 25mg/ml syringe IV PRN ×3 (07:55)
[2021-10-07] MEDS ORDERED: ePHEDrine 50MG/ML INJ. ONE (08:14)
--- NOTE | 2021-10-07 08:30 | NUR ---
Received from OR via BED, accompanied by Anesthesiologist DR ROGERS and report given by Anesthesiologist. PT DROWSY, DENIES PAIN. RIGHT KNEE W/DEBBIE WRAP OVER INCISION CDI. DANIELLE CATHETER TO GRAVITY DRAINAGE W/YELLOW URINE. Addendum: 10/07/21 at 0902 by Sarah Ramírez RN Amended: Links added. Addendum: 10/07/21 at 0909 by Sarah Ramírez RN MELISSA TO RIGHT KNEE W/S/S DRAINAGE TO BULB SX
[2021-10-07] MEDS ORDERED: bisacodyl 10mg suppository rectal RC PRN (08:40)
[2021-10-07] MEDS ORDERED: magnesium hydroxide 30ml (MOM) UD suspension PO PRN (08:40)
[2021-10-07] MEDS ORDERED: non-formulary drug (Alendronate Sodium* (Fosamax*) 70 MG) PO SCH (08:40)
[2021-10-07] MEDS ORDERED: HYDROcodone/acetaminophen 10/325mg tab PO PRN (08:40)
[2021-10-07] MEDS ORDERED: HYDROmorphone 1 mg/ml syringe IV PRN (08:40)
[2021-10-07] MEDS ORDERED: diphenhydrAMINE 25mg capsule PO PRN ×2 (08:40)
[2021-10-07] MEDS ORDERED: acetaminophen 325mg tablet PO PRN (08:40)
[2021-10-07] MEDS ORDERED: HYDROmorphone inj. 0.5 MG/0.5 ML DISP.SYRIN IV PRN (08:40)
--- NOTE | 2021-10-07 09:27 | NUR ---
Received report from Sarah PALOMARES in recovery
--- NOTE | 2021-10-07 09:30 | NUR ---
Report called to receiving nurse. Transferred via BED, NO Belongings. BLL, CALL LIGHT GIVEN, SIDE RAILS UP X 2, PT ORIENTED TO SELF AND SAFETY. NOTIFIED SALES AND SERVICE REPRESENTATIVE OF PTS ARRIVAL. Special Issues communicated to receiving nurse. YES. Addendum: 10/07/21 at 0943 by Sarah Ramírez RN Amended: Links added.
--- NOTE | 2021-10-07 09:35 | NUR ---
Pt back from OR, transported on hospital bed. Post op VS started, call light within reach. Will continue to monitor.
[2021-10-07] MEDS: potassium cl 20mEq in 1/2 NS 1,000 ML IV SCH ×2 (11:03→16:40)
[2021-10-07 12:27] LABS: COLOR,SYNOVIAL FLUID YELLOW
[2021-10-07 12:28] LABS: APPEARANCE,SYNOVIAL FLUID CLOUDY; SYN RBC 10600 /CU MM (0); SYN WBC 25950 /CU MM (0-200)
[2021-10-07] MEDS: oxyCODONE IR 5mg (immed. release) tablet PO PRN (12:36)
[2021-10-07] MEDS: acetaminophen 325mg tablet PO SCH ×2 (13:47→22:28)
[2021-10-07] MEDS: ipratropium 0.5 MG/2.5ML nebule IH SCH ×2 (14:19→20:02)
[2021-10-07] MEDS: ketorolac tromethamine 15mg/ml inj. IV SCH ×2 (14:22→22:32)
[2021-10-07] MEDS ORDERED: ceFAZolin/D5W- 1GM premix 50 ML IV SCH (16:00)
[2021-10-07] MEDS: calcium carbonate 500mg tablet PO SCH (16:22)
[2021-10-07] MEDS: ibuprofen tablet 400 MG TABLET PO SCH (16:22)
[2021-10-07] MEDS: cyclobenzaprine 10mg tablet PO PRN (16:24)
--- NOTE | 2021-10-07 18:14 | NUR ---
Problems reprioritized. Patient report given, questions answered & plan of care reviewed with MARIELLE Ortiz.
--- NOTE | 2021-10-07 18:30 | NUR ---
Patient in room [facility] 341. I have received report from CASTRO PALOMARES and had the opportunity to ask questions and assume patient care.
[2021-10-07] MEDS: VANCOMYCIN 1GM/200ML IVPB 200 ML IV SCH (20:07)
[2021-10-07] MEDS: traZODone 50mg tablet PO SCH (22:29)
[2021-10-07] MEDS: sennosides 8.6mg tablet PO SCH (22:29)
[2021-10-08] VITALS: BP 100/54
[2021-10-08] MEDS: cyclobenzaprine 10mg tablet PO PRN (00:21)
[2021-10-08] MEDS: ceFAZolin/D5W- 1GM premix 50 ML IV SCH ×3 (00:22→16:11)
[2021-10-08] MEDS: ibuprofen tablet 400 MG TABLET PO SCH ×3 (00:22→16:10)
[2021-10-08] MEDS: calcium carbonate 500mg tablet PO SCH ×3 (00:22→16:10)
[2021-10-08] MEDS: potassium cl 20mEq in 1/2 NS 1,000 ML IV SCH ×3 (00:24→16:40)
[2021-10-08] MEDS: acetaminophen 325mg tablet PO SCH ×4 (02:00→21:40)
[2021-10-08] MEDS: ipratropium 0.5 MG/2.5ML nebule IH SCH ×4 (02:58→20:20)
[2021-10-08] MEDS: ketorolac tromethamine 15mg/ml inj. IV SCH ×2 (03:50→09:39)
[2021-10-08 05:12] VITALS: BP 100/54
[2021-10-08] MEDS: HYDROcodone/acetaminophen 10/325mg tab PO PRN ×2 (05:26→14:22)
[2021-10-08 05:53] LABS: BASOPHILS % (AUTO) 0.3 % (0-1); EOSINOPHILS # (AUTO) 0.1 X10'3 (0-0.9); EOSINOPHILS % (AUTO) 0.7 % (0-6); HEMATOCRIT 24.4 % (35.0-45.0); HEMOGLOBIN 7.6 g/dl (12.0-16.0); LYMPHOCYTES # (AUTO) 1.4 X10'3 (1.1-4.8); MEAN CORPUSCULAR HEMOGLOBIN 24.8 PG (27.0-31.0); MEAN CORPUSCULAR HGB CONC 31.1 g/dL (33.0-36.5); MEAN CORPUSCULAR VOLUME 79.7 FL (78-98); MEAN PLATELET VOLUME 7.8 FL (7.4-10.4); MONOCYTES # (AUTO) 0.8 X10'3 (0-0.9); NEUTROPHILS # (AUTO) 8.8 X10'3 (1.8-7.7); PLATELET COUNT 412 X10'3 (140-440); RED BLOOD COUNT 3.06 X10'6 (4.20-5.60); RED CELL DISTRIBUTION WIDTH 18.5 % (11.5-14.5); WHITE BLOOD COUNT 11.1 X10'3 (4.5-11.0)
--- NOTE | 2021-10-08 06:20 | NUR ---
Problems reprioritized. Patient report given, questions answered & plan of care reviewed with MARCIO PALOMARES.
--- NOTE | 2021-10-08 06:25 | NUR ---
I have received report from MARIELLE Baldwin and had the opportunity to ask questions and assume patient care.
[2021-10-08 06:27] LABS: ANION GAP 6 (8-16); CHLORIDE 107 MMOL/L (99-107); POTASSIUM 5.5 MMOL/L (3.5-5.1); SODIUM 138 MMOL/L (135-145); TOTAL CARBON DIOXIDE 24.8 MMOL/L (24-32)
[2021-10-08] MEDS: folic acid 1mg tablet PO SCH (07:35)
[2021-10-08] MEDS: pantoprazole 40mg Tablet.DR PO SCH (07:36)
[2021-10-08] MEDS: predniSONE 1 mg tablet PO SCH (07:38)
[2021-10-08] MEDS: predniSONE 5mg tablet PO SCH (07:38)
[2021-10-08] MEDS: ferrous sulfate 325mg tablet PO SCH (07:39)
[2021-10-08 08:00] VITALS: BP 114/60
[2021-10-08] MEDS ORDERED: predniSONE 5mg tablet PO SCH (08:00)
[2021-10-08] MEDS ORDERED: aspirin 325mg tablet PO SCH (08:30)
[2021-10-08] MEDS: aspirin 325mg tablet PO SCH (10:27)
[2021-10-08 11:00] VITALS: BP 105/57
[2021-10-08] MEDS: VANCOMYCIN 1GM/200ML IVPB 200 ML IV SCH ×2 (11:56→21:39)
[2021-10-08] MEDS: oxyCODONE IR 5mg (immed. release) tablet PO PRN ×2 (16:10→21:55)
[2021-10-08] MEDS ORDERED: furosemide 20 MG/2 ML vial IV ONE (17:50)
--- NOTE | 2021-10-08 18:23 | NUR ---
Problems reprioritized. Patient report given, questions answered & plan of care reviewed with MARIELLE Etienne.
--- NOTE | 2021-10-08 18:38 | NUR ---
Patient in room [facility] 341. I have received report from MARCIO PALOMARES and had the opportunity to ask questions and assume patient care. Addendum: 10/08/21 at 1838 by Jaimie Blake RN Amended: Links added.
--- NOTE | 2021-10-08 19:23 | NUR ---
[facility], and assessment,
[2021-10-08 19:30] VITALS: BP 100/54
[2021-10-08] MEDS: traZODone 50mg tablet PO SCH (21:39)
[2021-10-08] MEDS: sennosides 8.6mg tablet PO SCH (21:39)
--- NOTE | 2021-10-08 22:13 | NUR ---
MEDICATED FOR PAIN WITH OXY IR AND PT SET UP WITH WATER ETC. PT STATED SHE WANTS TO SLEEP TONIGHT DID NOT GET MUCH LAST NIGHT.
[2021-10-09 00:05] VITALS: BP 105/57
--- NOTE | 2021-10-09 00:45 | NUR ---
x4 sticks to get iv veins blew no success vein gave out earlier with vanco infusion.
[2021-10-09] MEDS: calcium carbonate 500mg tablet PO SCH ×3 (00:57→15:58)
[2021-10-09] MEDS: ibuprofen tablet 400 MG TABLET PO SCH ×3 (00:57→15:58)
[2021-10-09] MEDS: acetaminophen 325mg tablet PO SCH ×2 (02:30→07:47)
[2021-10-09] MEDS: ceFAZolin/D5W- 1GM premix 50 ML IV SCH ×3 (02:31→15:59)
[2021-10-09] MEDS: ipratropium 0.5 MG/2.5ML nebule IH SCH ×4 (02:38→20:37)
--- NOTE | 2021-10-09 06:13 | NUR ---
Problems reprioritized. Patient report given, questions answered & plan of care reviewed with MARIELLE BUCKLEY. Addendum: 10/09/21 at 0613 by Jaimie Blake RN Amended: Links added.
--- NOTE | 2021-10-09 06:29 | NUR ---
Patient in room [facility] 341. I have received report from MARIELLE Etienne and had the opportunity to ask questions and assume patient care.
--- NOTE | 2021-10-09 06:30 | NUR ---
Patient in room [facility] 340. I have received report from MARIELLE Etienne and had the opportunity to ask questions and assume patient care.
[2021-10-09 06:36] LABS: BASOPHILS # (AUTO) 0.1 X10'3 (0-0.2); BASOPHILS % (AUTO) 0.5 % (0-1); EOSINOPHILS # (AUTO) 0.4 X10'3 (0-0.9); EOSINOPHILS % (AUTO) 3.9 % (0-6); HEMATOCRIT 24.9 % (35.0-45.0); LYMPHOCYTES # (AUTO) 3.1 X10'3 (1.1-4.8); LYMPHOCYTES % (AUTO) 29.2 % (21-51); MEAN CORPUSCULAR HEMOGLOBIN 25.4 PG (27.0-31.0); MEAN CORPUSCULAR HGB CONC 32.2 g/dL (33.0-36.5); MEAN CORPUSCULAR VOLUME 78.7 FL (78-98); MONOCYTES # (AUTO) 0.4 X10'3 (0-0.9); NEUTROPHILS # (AUTO) 6.6 X10'3 (1.8-7.7); NEUTROPHILS % (AUTO) 62.4 % (42-75); PLATELET COUNT 447 X10'3 (140-440); RED BLOOD COUNT 3.16 X10'6 (4.20-5.60); WHITE BLOOD COUNT 10.6 X10'3 (4.5-11.0)
[2021-10-09 06:43] LABS: CREATININE 0.93 MG/DL (0.40-0.90); eGFR 65 ML/MIN
[2021-10-09] MEDS ORDERED: VANCOMYCIN LEVEL IV ONE (07:30)
[2021-10-09] MEDS: pantoprazole 40mg Tablet.DR PO SCH (07:46)
[2021-10-09] MEDS: folic acid 1mg tablet PO SCH (07:46)
[2021-10-09] MEDS: aspirin 325mg tablet PO SCH (07:47)
[2021-10-09] MEDS: ferrous sulfate 325mg tablet PO SCH (07:48)
[2021-10-09] MEDS: predniSONE 1 mg tablet PO SCH (07:48)
[2021-10-09] MEDS: predniSONE 5mg tablet PO SCH (07:48)
[2021-10-09 08:00] VITALS: BP 127/76
[2021-10-09] MEDS ORDERED: acetaminophen 325mg tablet PO PRN (08:40)
[2021-10-09 08:41] LABS: ALANINE AMINOTRANSFERASE 8 U/L (12-78); ALBUMIN 2.5 G/DL (3.4-5.0); ALBUMIN/GLOBULIN RATIO 0.8 (1.1-1.5); ALKALINE PHOSPHATASE 82 IU/L (46-116); ANION GAP 9 (8-16); ASPARTATE AMINO TRANSFERASE 13 U/L (10-37); BILIRUBIN,TOTAL 0.2 MG/DL (0.1-1.0); BLOOD UREA NITROGEN 13 MG/DL (7-18); BUN/CREATININE RATIO 15.9 (6.6-38.0); CALCIUM 8.8 MG/DL (8.5-10.1); CHLORIDE 106 MMOL/L (99-107); CREATININE 0.82 MG/DL (0.40-0.90); GLUCOSE 83 MG/DL (70-104); POTASSIUM 3.7 MMOL/L (3.5-5.1); SODIUM 139 MMOL/L (135-145); TOTAL CARBON DIOXIDE 23.6 MMOL/L (24-32); TOTAL PROTEIN 5.8 G/DL (6.4-8.2); VANCOMYCIN,TROUGH 18.7 UG/ML (6.0-14.0); eGFR 76 ML/MIN
[2021-10-09] MEDS: HYDROcodone/acetaminophen 10/325mg tab PO PRN ×2 (10:28→15:58)
[2021-10-09] MEDS: VANCOMYCIN 1GM/200ML IVPB 200 ML IV SCH ×2 (10:42→20:22)
[2021-10-09 11:00] VITALS: BP 116/70
[2021-10-09] MEDS: oxyCODONE IR 5mg (immed. release) tablet PO PRN ×2 (13:19→20:21)
--- NOTE | 2021-10-09 18:41 | NUR ---
Problems reprioritized. Patient report given, questions answered & plan of care reviewed with MARIELLE Etienne.
--- NOTE | 2021-10-09 18:42 | NUR ---
I agree with student Tessy's charting, assessment, and report given to MARIELLE Etienne
--- NOTE | 2021-10-09 18:44 | NUR ---
Patient in room [facility] 340. I have received report from MARCIO, RN & RN STUDENT and had the opportunity to ask questions and assume patient care. Addendum: 10/09/21 at 1845 by Jaimie Blake RN Amended: Links added.
[2021-10-09 19:00] VITALS: BP 105/71
[2021-10-09] MEDS: traZODone 50mg tablet PO SCH (20:21)
[2021-10-09] MEDS: sennosides 8.6mg tablet PO SCH (20:22)
[2021-10-10] VITALS: BP 100/60
[2021-10-10] MEDS: ceFAZolin/D5W- 1GM premix 50 ML IV SCH ×3 (00:11→15:14)
[2021-10-10] MEDS: HYDROcodone/acetaminophen 10/325mg tab PO PRN ×4 (00:12→20:31)
[2021-10-10] MEDS: ibuprofen tablet 400 MG TABLET PO SCH ×3 (00:12→15:14)
[2021-10-10] MEDS: calcium carbonate 500mg tablet PO SCH ×3 (00:12→15:14)
[2021-10-10] MEDS: ipratropium 0.5 MG/2.5ML nebule IH SCH ×4 (02:38→20:06)
--- NOTE | 2021-10-10 06:09 | NUR ---
RESTING WITHOUT CHANGES.
--- NOTE | 2021-10-10 06:28 | NUR ---
Problems reprioritized. Patient report given, questions answered & plan of care reviewed with MARIELLE VASQUES. Addendum: 10/10/21 at 0631 by Jaimie Blake RN Amended: Links added.
[2021-10-10 06:54] LABS: CREATININE 0.62 MG/DL (0.40-0.90); eGFR > 90 ML/MIN
[2021-10-10 07:00] VITALS: BP 100/58
[2021-10-10 07:09] LABS: BASOPHILS # (AUTO) 0.1 X10'3 (0-0.2); BASOPHILS % (AUTO) 0.6 % (0-1); EOSINOPHILS # (AUTO) 0.4 X10'3 (0-0.9); EOSINOPHILS % (AUTO) 4.5 % (0-6); HEMATOCRIT 23.9 % (35.0-45.0); HEMOGLOBIN 7.8 g/dl (12.0-16.0); LYMPHOCYTES # (AUTO) 3.2 X10'3 (1.1-4.8); LYMPHOCYTES % (AUTO) 38.4 % (21-51); MEAN CORPUSCULAR HEMOGLOBIN 25.6 PG (27.0-31.0); MEAN CORPUSCULAR HGB CONC 32.7 g/dL (33.0-36.5); MEAN CORPUSCULAR VOLUME 78.3 FL (78-98); MONOCYTES # (AUTO) 0.3 X10'3 (0-0.9); MONOCYTES % (AUTO) 3.2 % (2-12); NEUTROPHILS # (AUTO) 4.5 X10'3 (1.8-7.7); NEUTROPHILS % (AUTO) 53.3 % (42-75); PLATELET COUNT 438 X10'3 (140-440); RED BLOOD COUNT 3.05 X10'6 (4.20-5.60); WHITE BLOOD COUNT 8.4 X10'3 (4.5-11.0)
[2021-10-10] MEDS: VANCOMYCIN 1GM/200ML IVPB 200 ML IV SCH ×2 (07:43→21:14)
[2021-10-10] MEDS: aspirin 325mg tablet PO SCH (07:46)
[2021-10-10] MEDS: predniSONE 5mg tablet PO SCH (07:46)
[2021-10-10] MEDS: predniSONE 1 mg tablet PO SCH (07:46)
[2021-10-10] MEDS: folic acid 1mg tablet PO SCH (07:47)
[2021-10-10] MEDS: pantoprazole 40mg Tablet.DR PO SCH (07:47)
[2021-10-10] MEDS: ferrous sulfate 325mg tablet PO SCH (07:48)
[2021-10-10 11:42] VITALS: BP 97/60
[2021-10-10] MEDS: ampicillin inj 2 GM in normal saline 100ml IV soln 100 ML IV SCH ×3 (13:05→20:28)
[2021-10-10] MEDS: oxyCODONE IR 5mg (immed. release) tablet PO PRN (16:05)
[2021-10-10 18:00] VITALS: BP 113/74
--- NOTE | 2021-10-10 18:30 | NUR ---
Patient in room [facility] 340. I have received report from LAYO PALOMARES and had the opportunity to ask questions and assume patient care. Addendum: 10/10/21 at 1918 by Jaimie Blake RN Amended: Links added.
[2021-10-10] MEDS: traZODone 50mg tablet PO SCH (20:32)
[2021-10-10] MEDS: sennosides 8.6mg tablet PO SCH (20:32)
[2021-10-10 23:48] VITALS: BP 103/59
[2021-10-11] MEDS: ceFAZolin/D5W- 1GM premix 50 ML IV SCH ×2 (00:47→08:00)
[2021-10-11] MEDS: calcium carbonate 500mg tablet PO SCH ×3 (00:48→16:00)
[2021-10-11] MEDS: ibuprofen tablet 400 MG TABLET PO SCH ×3 (00:48→16:00)
[2021-10-11] MEDS: HYDROcodone/acetaminophen 10/325mg tab PO PRN ×2 (00:48→06:59)
[2021-10-11] MEDS: ampicillin inj 2 GM in normal saline 100ml IV soln 100 ML IV SCH ×6 (01:54→19:17)
[2021-10-11] MEDS: ipratropium 0.5 MG/2.5ML nebule IH SCH ×4 (02:46→20:08)
--- NOTE | 2021-10-11 05:14 | NUR ---
Student documentation: I have reviewed and agree with all interventions, assessments performed and documented by LAYO SULLIVAN RN STUDENT.Student Medication Administration: For this medication-pass time frame, all medication were reviewed, dispensed, administered and documented per hospital policy by LAYO SULLIVAN RN STUDENT. Addendum: 10/11/21 at 0516 by Jaimie Blake RN Amended: Links added.
--- NOTE | 2021-10-11 06:12 | NUR ---
Problems reprioritized. Patient report given, questions answered & plan of care reviewed with MARIELLE Maciel. Addendum: 10/11/21 at 0613 by Janell GRACE Amended: Links added.
[2021-10-11] MEDS: pantoprazole 40mg Tablet.DR PO SCH (06:57)
[2021-10-11] MEDS: folic acid 1mg tablet PO SCH (06:57)
[2021-10-11] MEDS: aspirin 325mg tablet PO SCH (06:57)
[2021-10-11] MEDS: predniSONE 1 mg tablet PO SCH (06:58)
[2021-10-11] MEDS: ferrous sulfate 325mg tablet PO SCH (06:58)
[2021-10-11] MEDS: predniSONE 5mg tablet PO SCH (06:58)
[2021-10-11 07:29] VITALS: BP 99/65
[2021-10-11] MEDS: VANCOMYCIN 1GM/200ML IVPB 200 ML IV SCH ×2 (08:36→20:51)
--- NOTE | 2021-10-11 08:51 | NUR ---
pharmacy did not send 0800 ancef dose. pharm to reach out to dr olivares re: need for this med to be continued
[2021-10-11 10:35] LABS: BASOPHILS # (AUTO) 0.1 X10'3 (0-0.2); BASOPHILS % (AUTO) 0.8 % (0-1); EOSINOPHILS # (AUTO) 0.3 X10'3 (0-0.9); EOSINOPHILS % (AUTO) 3.8 % (0-6); HEMOGLOBIN 7.6 g/dl (12.0-16.0); LYMPHOCYTES # (AUTO) 1.3 X10'3 (1.1-4.8); LYMPHOCYTES % (AUTO) 15.3 % (21-51); MEAN CORPUSCULAR HEMOGLOBIN 25.2 PG (27.0-31.0); MEAN CORPUSCULAR HGB CONC 31.7 g/dL (33.0-36.5); MEAN CORPUSCULAR VOLUME 79.6 FL (78-98); MONOCYTES # (AUTO) 0.3 X10'3 (0-0.9); MONOCYTES % (AUTO) 3.9 % (2-12); NEUTROPHILS # (AUTO) 6.5 X10'3 (1.8-7.7); NEUTROPHILS % (AUTO) 76.2 % (42-75); PLATELET COUNT 466 X10'3 (140-440); RED BLOOD COUNT 3.01 X10'6 (4.20-5.60); RED CELL DISTRIBUTION WIDTH 18.2 % (11.5-14.5); WHITE BLOOD COUNT 8.5 X10'3 (4.5-11.0)
[2021-10-11 10:47] LABS: ALANINE AMINOTRANSFERASE 6 U/L (12-78); ALBUMIN 2.1 G/DL (3.4-5.0); ALBUMIN/GLOBULIN RATIO 0.6 (1.1-1.5); ANION GAP 8 (8-16); ASPARTATE AMINO TRANSFERASE 11 U/L (10-37); BILIRUBIN,TOTAL 0.1 MG/DL (0.1-1.0); BLOOD UREA NITROGEN 14 MG/DL (7-18); BUN/CREATININE RATIO 20.6 (6.6-38.0); CALCIUM 9.1 MG/DL (8.5-10.1); CHLORIDE 109 MMOL/L (99-107); CREATININE 0.68 MG/DL (0.40-0.90); GLUCOSE 75 MG/DL (70-104); POTASSIUM 4.1 MMOL/L (3.5-5.1); SODIUM 141 MMOL/L (135-145); TOTAL CARBON DIOXIDE 23.9 MMOL/L (24-32); TOTAL PROTEIN 5.4 G/DL (6.4-8.2); eGFR > 90 ML/MIN
[2021-10-11 11:13] LABS: ALKALINE PHOSPHATASE 75 IU/L (46-116)
[2021-10-11] MEDS: oxyCODONE IR 5mg (immed. release) tablet PO PRN ×3 (11:30→20:53)
[2021-10-11 12:34] VITALS: BP 95/63
--- NOTE | 2021-10-11 13:04 | NUR ---
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 Pt PO intake 75-100% on vegetarian diet and currently meeting estimated nutrient needs. Written high protein diet ed w/ RD contact information placed in pt chart. LBM 10/10 and +1 BLE non-pitting edema present per EMR. Will continue to monitor and evaluate need for nutrition intervention. Recommendations: 1. Continue vegetarian diet 2. Routine bowel care 3. Weekly scaled wts Addendum: 10/11/21 at [address] Amended: Links added. Addendum: 10/11/21 at [address] I have reviewed assessment by tax intern
--- NOTE | 2021-10-11 18:30 | NUR ---
Patient in room [facility] 340. I have received report from LAYO PALOMARES and had the opportunity to ask questions and assume patient care. Addendum: 10/11/21 at 1913 by Jaimie Blake RN Amended: Links added.
[2021-10-11 19:00] VITALS: BP 119/74
[2021-10-11] MEDS: sennosides 8.6mg tablet PO SCH ×2 (19:17→19:19)
--- NOTE | 2021-10-11 19:30 | NUR ---
dressing right knee with leo drain intact.
--- NOTE | 2021-10-11 20:40 | NUR ---
went in the room to hang second antibiotic found pt had removed her dressing to the right knee and was starting to try and itch it touching the midline incision with maciej. teaching done stating only Md and nurse is to change it right now and teaching regarding infection control and what can happen to her knee if it gets reinfected or the infection becomes worse. Stressed the importance if there is a problem with the dressing let the nurse know right away. New dressing applied wrapped in kerlix with idania wrap and reinforced the instruction and importacne of not touching the wound and hygiene.
[2021-10-11] MEDS: traZODone 50mg tablet PO SCH (20:52)
[2021-10-12] VITALS (11 sets, daily range): BP systolic 101–137; BP diastolic 63–83
[2021-10-12] MEDS: ampicillin inj 2 GM in normal saline 100ml IV soln 100 ML IV SCH ×6 (00:21→21:23)
[2021-10-12] MEDS: calcium carbonate 500mg tablet PO SCH ×3 (00:22→17:41)
[2021-10-12] MEDS: ibuprofen tablet 400 MG TABLET PO SCH ×3 (00:22→17:41)
[2021-10-12] MEDS: ipratropium 0.5 MG/2.5ML nebule IH SCH ×4 (02:45→19:50)
--- NOTE | 2021-10-12 03:41 | NUR ---
pt resting without changes. dressing remains dry and in place.
[2021-10-12 05:57] LABS: BASOPHILS # (AUTO) 0.1 X10'3 (0-0.2); BASOPHILS % (AUTO) 0.8 % (0-1); EOSINOPHILS # (AUTO) 0.6 X10'3 (0-0.9); EOSINOPHILS % (AUTO) 6.2 % (0-6); LYMPHOCYTES # (AUTO) 3.4 X10'3 (1.1-4.8); LYMPHOCYTES % (AUTO) 37.1 % (21-51); MEAN CORPUSCULAR HEMOGLOBIN 25.3 PG (27.0-31.0); MEAN PLATELET VOLUME 7.6 FL (7.4-10.4); MONOCYTES # (AUTO) 0.5 X10'3 (0-0.9); MONOCYTES % (AUTO) 5.5 % (2-12); NEUTROPHILS # (AUTO) 4.6 X10'3 (1.8-7.7); NEUTROPHILS % (AUTO) 50.4 % (42-75); PLATELET COUNT 415 X10'3 (140-440); RED BLOOD COUNT 2.78 X10'6 (4.20-5.60); WHITE BLOOD COUNT 9.2 X10'3 (4.5-11.0)
[2021-10-12 06:05] LABS: HEMATOCRIT 21.9 % (35.0-45.0)
--- NOTE | 2021-10-12 06:12 | NUR ---
Problems reprioritized. Patient report given, questions answered & plan of care reviewed with LAYO PALOMARES. Addendum: 10/12/21 at 0612 by Jaimie Blake RN Amended: Links added.
[2021-10-12 06:37] LABS: ALANINE AMINOTRANSFERASE 7 U/L (12-78); ALBUMIN/GLOBULIN RATIO 0.7 (1.1-1.5); ANION GAP 8 (8-16); ASPARTATE AMINO TRANSFERASE 13 U/L (10-37); BILIRUBIN,TOTAL 0.1 MG/DL (0.1-1.0); BLOOD UREA NITROGEN 13 MG/DL (7-18); BUN/CREATININE RATIO 18.1 (6.6-38.0); CALCIUM 9.2 MG/DL (8.5-10.1); CHLORIDE 109 MMOL/L (99-107); CREATININE 0.72 MG/DL (0.40-0.90); GLUCOSE 79 MG/DL (70-104); POTASSIUM 4.2 MMOL/L (3.5-5.1); SODIUM 142 MMOL/L (135-145); TOTAL CARBON DIOXIDE 25.4 MMOL/L (24-32); TOTAL PROTEIN 4.9 G/DL (6.4-8.2); eGFR 88 ML/MIN
--- NOTE | 2021-10-12 06:45 | NUR ---
dr villasenor called to be mde aware of hgb 7.0. TO obtained for 1 unit PRBCs
[2021-10-12] MEDS: VANCOMYCIN 1GM/200ML IVPB 200 ML IV SCH ×2 (07:36→19:40)
[2021-10-12] MEDS: ferrous sulfate 325mg tablet PO SCH (07:37)
[2021-10-12] MEDS: predniSONE 1 mg tablet PO SCH (07:38)
[2021-10-12] MEDS: predniSONE 5mg tablet PO SCH (07:38)
[2021-10-12] MEDS: oxyCODONE IR 5mg (immed. release) tablet PO PRN ×4 (07:39→21:41)
[2021-10-12] MEDS: pantoprazole 40mg Tablet.DR PO SCH (07:39)
[2021-10-12] MEDS: folic acid 1mg tablet PO SCH (07:39)
[2021-10-12] MEDS: aspirin 325mg tablet PO SCH (07:39)
--- NOTE | 2021-10-12 08:08 | NUR ---
message to dr quevedo "PAGER ID: [phone] MESSAGE: [id number] precidio Davis makes her itch. pain 7/10morphine not avail for another hour. please switch Davis to another med. please consider ordering something for anxiety. pts on covid unt, appears to not to be doing well. thank you [phone]"
--- NOTE | 2021-10-12 08:08 | NUR ---
please ignore note re: norco. placed on wrong pt
--- NOTE | 2021-10-12 18:55 | NUR ---
Patient in room [facility] 340. I have received report from MARIELLE Maciel and had the opportunity to ask questions and assume patient care.
[2021-10-12 20:51] LABS: HEMATOCRIT 29.1 % (35.0-45.0); HEMOGLOBIN 9.3 g/dl (12.0-16.0); MEAN CORPUSCULAR HEMOGLOBIN 25.4 PG (27.0-31.0); MEAN CORPUSCULAR HGB CONC 31.9 g/dL (33.0-36.5); MEAN CORPUSCULAR VOLUME 79.5 FL (78-98); MEAN PLATELET VOLUME 7.9 FL (7.4-10.4); PLATELET COUNT 444 X10'3 (140-440); RED BLOOD COUNT 3.67 X10'6 (4.20-5.60); RED CELL DISTRIBUTION WIDTH 17.6 % (11.5-14.5); WHITE BLOOD COUNT 11.4 X10'3 (4.5-11.0)
[2021-10-12] MEDS: sennosides 8.6mg tablet PO SCH (21:20)
[2021-10-12] MEDS: traZODone 50mg tablet PO SCH (21:21)
--- NOTE | 2021-10-12 21:55 | NUR ---
Student Medication Administration: For this medication-pass time frame, all medication were reviewed, dispensed, administered and documented per hospital policy by Loraine SAWYER [facility].
--- NOTE | 2021-10-12 21:56 | NUR ---
Student Medication Administration: For this medication-pass time frame, all medication were reviewed, dispensed, administered and documented per hospital policy by Loraine SAWYER [facility].
[2021-10-13] MEDS: ampicillin inj 2 GM in normal saline 100ml IV soln 100 ML IV SCH ×6 (00:07→22:01)
[2021-10-13] MEDS: normal saline 1000ml 1,000 ML IV SCH (00:08)
[2021-10-13] MEDS: ipratropium 0.5 MG/2.5ML nebule IH SCH ×4 (03:00→20:26)
[2021-10-13 06:13] LABS: BASOPHILS # (AUTO) 0.1 X10'3 (0-0.2); BASOPHILS % (AUTO) 0.7 % (0-1); EOSINOPHILS # (AUTO) 0.5 X10'3 (0-0.9); EOSINOPHILS % (AUTO) 5.7 % (0-6); HEMATOCRIT 27.1 % (35.0-45.0); HEMOGLOBIN 8.9 g/dl (12.0-16.0); LYMPHOCYTES # (AUTO) 3.6 X10'3 (1.1-4.8); LYMPHOCYTES % (AUTO) 37.6 % (21-51); MEAN CORPUSCULAR VOLUME 78.9 FL (78-98); MEAN PLATELET VOLUME 7.6 FL (7.4-10.4); MONOCYTES # (AUTO) 0.7 X10'3 (0-0.9); MONOCYTES % (AUTO) 7.7 % (2-12); NEUTROPHILS # (AUTO) 4.6 X10'3 (1.8-7.7); NEUTROPHILS % (AUTO) 48.3 % (42-75); PLATELET COUNT 407 X10'3 (140-440); RED BLOOD COUNT 3.43 X10'6 (4.20-5.60); RED CELL DISTRIBUTION WIDTH 17.5 % (11.5-14.5); WHITE BLOOD COUNT 9.5 X10'3 (4.5-11.0)
--- NOTE | 2021-10-13 06:30 | NUR ---
Problems reprioritized. Patient report given, questions answered & plan of care reviewed with MARIELLE Maciel.
[2021-10-13 06:43] LABS: ALANINE AMINOTRANSFERASE 10 U/L (12-78); ALBUMIN 2.1 G/DL (3.4-5.0); ALBUMIN/GLOBULIN RATIO 0.7 (1.1-1.5); ANION GAP 5 (8-16); ASPARTATE AMINO TRANSFERASE 11 U/L (10-37); BILIRUBIN,TOTAL 0.2 MG/DL (0.1-1.0); BLOOD UREA NITROGEN 12 MG/DL (7-18); BUN/CREATININE RATIO 17.6 (6.6-38.0); CALCIUM 8.5 MG/DL (8.5-10.1); CHLORIDE 111 MMOL/L (99-107); CREATININE 0.68 MG/DL (0.40-0.90); GLUCOSE 83 MG/DL (70-104); POTASSIUM 4.4 MMOL/L (3.5-5.1); SODIUM 142 MMOL/L (135-145); TOTAL CARBON DIOXIDE 25.6 MMOL/L (24-32); TOTAL PROTEIN 5.1 G/DL (6.4-8.2); eGFR > 90 ML/MIN
[2021-10-13] MEDS: ibuprofen tablet 400 MG TABLET PO SCH ×3 (07:53→16:50)
[2021-10-13] MEDS: pantoprazole 40mg Tablet.DR PO SCH (07:53)
[2021-10-13] MEDS: predniSONE 1 mg tablet PO SCH (07:54)
[2021-10-13] MEDS: folic acid 1mg tablet PO SCH (07:54)
[2021-10-13] MEDS: calcium carbonate 500mg tablet PO SCH ×3 (07:55→16:48)
[2021-10-13] MEDS: aspirin 325mg tablet PO SCH (07:55)
[2021-10-13] MEDS: predniSONE 5mg tablet PO SCH (07:55)
[2021-10-13] MEDS: ferrous sulfate 325mg tablet PO SCH (07:55)
[2021-10-13 08:38] VITALS: BP 128/81
[2021-10-13] MEDS: VANCOMYCIN 1GM/200ML IVPB 200 ML IV SCH ×2 (08:40→19:56)
[2021-10-13] MEDS: oxyCODONE IR 5mg (immed. release) tablet PO PRN ×3 (08:49→19:42)
[2021-10-13 11:28] VITALS: BP 126/84
[2021-10-13] MEDS ORDERED: ETAN50PE3 SQ (11:45)
[2021-10-13] MEDS ORDERED: ETANERCEPT 50 MG/ML SQ ONE (12:00)
[2021-10-13] MEDS ORDERED: gabapentin 100mg capsule PO SCH (13:00)
[2021-10-13 17:27] VITALS: BP 138/89
[2021-10-13 18:00] VITALS: BP_SYST 131; BP_SYST 134; BP_DIAS 75; BP_DIAS 79
--- NOTE | 2021-10-13 18:19 | NUR ---
Patient in room [facility] 340. I have received report from MARIELLE Maciel and had the opportunity to ask questions and assume patient care.
[2021-10-13] MEDS: traZODone 50mg tablet PO SCH (22:07)
[2021-10-13] MEDS: sennosides 8.6mg tablet PO SCH (22:08)
--- NOTE | 2021-10-13 22:44 | NUR ---
Student Medication Administration: For this medication-pass time frame, all medication were reviewed, dispensed, administered and documented per hospital policy by Loraine SAWYER and Lucy SAWYER [facility].
--- NOTE | 2021-10-13 22:46 | NUR ---
Student Medication Administration: For this medication-pass time frame, all medication were reviewed, dispensed, administered and documented per hospital policy by Lucy Chery. [facility].
[2021-10-14] VITALS: BP 121/62
[2021-10-14] MEDS: calcium carbonate 500mg tablet PO SCH ×3 (00:46→16:08)
[2021-10-14] MEDS: ampicillin inj 2 GM in normal saline 100ml IV soln 100 ML IV SCH ×6 (00:46→19:35)
[2021-10-14] MEDS: ibuprofen tablet 400 MG TABLET PO SCH ×3 (00:47→16:08)
[2021-10-14] MEDS: ipratropium 0.5 MG/2.5ML nebule IH SCH ×4 (03:00→21:35)
[2021-10-14] MEDS: normal saline 1000ml 1,000 ML IV SCH ×2 (04:07→19:33)
--- NOTE | 2021-10-14 06:25 | NUR ---
Problems reprioritized. Patient report given, questions answered & plan of care reviewed with MARIELLE Dow.
[2021-10-14] MEDS ORDERED: VANCOMYCIN LEVEL IV ONE (07:30)
[2021-10-14 07:55] LABS: BASOPHILS # (AUTO) 0.1 X10'3 (0-0.2); BASOPHILS % (AUTO) 0.7 % (0-1); EOSINOPHILS # (AUTO) 0.6 X10'3 (0-0.9); HEMATOCRIT 28.8 % (35.0-45.0); HEMOGLOBIN 9.3 g/dl (12.0-16.0); LYMPHOCYTES # (AUTO) 3.7 X10'3 (1.1-4.8); LYMPHOCYTES % (AUTO) 41.6 % (21-51); MEAN CORPUSCULAR HEMOGLOBIN 25.7 PG (27.0-31.0); MEAN CORPUSCULAR HGB CONC 32.4 g/dL (33.0-36.5); MEAN CORPUSCULAR VOLUME 79.3 FL (78-98); MEAN PLATELET VOLUME 7.7 FL (7.4-10.4); MONOCYTES # (AUTO) 0.9 X10'3 (0-0.9); MONOCYTES % (AUTO) 9.7 % (2-12); NEUTROPHILS # (AUTO) 3.7 X10'3 (1.8-7.7); PLATELET COUNT 461 X10'3 (140-440); RED BLOOD COUNT 3.63 X10'6 (4.20-5.60); WHITE BLOOD COUNT 8.9 X10'3 (4.5-11.0)
[2021-10-14 08:00] VITALS: BP 124/67
[2021-10-14] MEDS: cyclobenzaprine 10mg tablet PO PRN (08:55)
[2021-10-14] MEDS: predniSONE 1 mg tablet PO SCH (08:55)
[2021-10-14] MEDS: predniSONE 5mg tablet PO SCH (08:55)
[2021-10-14] MEDS: folic acid 1mg tablet PO SCH (08:55)
[2021-10-14] MEDS: ferrous sulfate 325mg tablet PO SCH (08:55)
[2021-10-14] MEDS: aspirin 325mg tablet PO SCH (08:55)
[2021-10-14] MEDS: oxyCODONE IR 5mg (immed. release) tablet PO PRN ×3 (08:56→19:07)
[2021-10-14] MEDS: pantoprazole 40mg Tablet.DR PO SCH (08:56)
[2021-10-14] MEDS: VANCOMYCIN 1GM/200ML IVPB 200 ML IV SCH ×2 (08:57→21:57)
[2021-10-14 09:17] LABS: ALANINE AMINOTRANSFERASE 9 U/L (12-78); ALBUMIN 2.2 G/DL (3.4-5.0); ALBUMIN/GLOBULIN RATIO 0.7 (1.1-1.5); ALKALINE PHOSPHATASE 71 IU/L (46-116); ASPARTATE AMINO TRANSFERASE 13 U/L (10-37); BILIRUBIN,TOTAL 0.2 MG/DL (0.1-1.0); BLOOD UREA NITROGEN 9 MG/DL (7-18); BUN/CREATININE RATIO 15.8 (6.6-38.0); CHLORIDE 109 MMOL/L (99-107); CREATININE 0.57 MG/DL (0.40-0.90); GLUCOSE 88 MG/DL (70-104); POTASSIUM 3.9 MMOL/L (3.5-5.1); SODIUM 142 MMOL/L (135-145); TOTAL PROTEIN 5.2 G/DL (6.4-8.2); VANCOMYCIN,TROUGH 15.1 UG/ML (6.0-14.0); eGFR > 90 ML/MIN
[2021-10-14 09:20] LABS: ANION GAP 9 (8-16); TOTAL CARBON DIOXIDE 24.5 MMOL/L (24-32)
[2021-10-14 11:30] VITALS: BP 116/77
--- NOTE | 2021-10-14 15:15 | NUR ---
pt refused 1500 svn. no sob at this time
[2021-10-14 18:00] VITALS: BP 132/68
[2021-10-14 18:06] LABS: CLARITY,URINE CLEAR (Clear); COLOR,URINE YELLOW (Yellow); GLUCOSE, URINE NEGATIVE (Neg); KETONES,URINE NEGATIVE (Neg); LEUKOCYTE ESTERASE ,URINE NEGATIVE (Neg); NITRITES, URINE NEGATIVE (Neg); OCCULT BLOOD,URINE NEGATIVE (Neg); PROTEIN,URINE NEGATIVE (Neg); UROBILINOGEN,URINE 0.2 E.U/dL (0.2-1.0)
[2021-10-14 18:07] LABS: UA COLLECTION TYPE CLN CATCH MIDSTREAM
--- NOTE | 2021-10-14 18:09 | NUR ---
Gave report to Jenna PALOMARES.
--- NOTE | 2021-10-14 18:15 | NUR ---
Patient in room [facility] 340. I have received report from MARIELLE Dow and had the opportunity to ask questions and assume patient care.
[2021-10-14 18:45] VITALS: BP 119/71
[2021-10-14] MEDS: sennosides 8.6mg tablet PO SCH (21:57)
[2021-10-14] MEDS: traZODone 50mg tablet PO SCH (21:58)
[2021-10-15] VITALS: BP 132/68
[2021-10-15] MEDS: ampicillin inj 2 GM in normal saline 100ml IV soln 100 ML IV SCH ×6 (00:27→21:04)
[2021-10-15] MEDS: ibuprofen tablet 400 MG TABLET PO SCH ×3 (00:29→15:33)
[2021-10-15] MEDS: calcium carbonate 500mg tablet PO SCH ×3 (00:29→15:33)
[2021-10-15] MEDS: ipratropium 0.5 MG/2.5ML nebule IH SCH ×4 (02:16→20:13)
[2021-10-15] MEDS: oxyCODONE IR 5mg (immed. release) tablet PO PRN ×4 (06:30→21:16)
[2021-10-15 06:52] LABS: BASOPHILS # (AUTO) 0.1 X10'3 (0-0.2); BASOPHILS % (AUTO) 0.6 % (0-1); EOSINOPHILS # (AUTO) 0.7 X10'3 (0-0.9); EOSINOPHILS % (AUTO) 6.7 % (0-6); HEMATOCRIT 27.1 % (35.0-45.0); LYMPHOCYTES # (AUTO) 3.6 X10'3 (1.1-4.8); LYMPHOCYTES % (AUTO) 33.4 % (21-51); MEAN CORPUSCULAR HEMOGLOBIN 26.1 PG (27.0-31.0); MEAN CORPUSCULAR HGB CONC 33.2 g/dL (33.0-36.5); MEAN CORPUSCULAR VOLUME 78.6 FL (78-98); MEAN PLATELET VOLUME 7.5 FL (7.4-10.4); MONOCYTES % (AUTO) 8.7 % (2-12); NEUTROPHILS # (AUTO) 5.5 X10'3 (1.8-7.7); NEUTROPHILS % (AUTO) 50.6 % (42-75); PLATELET COUNT 490 X10'3 (140-440); RED BLOOD COUNT 3.45 X10'6 (4.20-5.60); RED CELL DISTRIBUTION WIDTH 18.4 % (11.5-14.5); WHITE BLOOD COUNT 10.9 X10'3 (4.5-11.0)
[2021-10-15 07:03] LABS: ALANINE AMINOTRANSFERASE 10 U/L (12-78); ALBUMIN 2.3 G/DL (3.4-5.0); ALBUMIN/GLOBULIN RATIO 0.7 (1.1-1.5); ANION GAP 7 (8-16); ASPARTATE AMINO TRANSFERASE 13 U/L (10-37); BILIRUBIN,TOTAL 0.3 MG/DL (0.1-1.0); BLOOD UREA NITROGEN 10 MG/DL (7-18); BUN/CREATININE RATIO 17.2 (6.6-38.0); CALCIUM 8.5 MG/DL (8.5-10.1); CHLORIDE 109 MMOL/L (99-107); CREATININE 0.58 MG/DL (0.40-0.90); GLUCOSE 76 MG/DL (70-104); POTASSIUM 4.2 MMOL/L (3.5-5.1); SODIUM 141 MMOL/L (135-145); TOTAL CARBON DIOXIDE 25.2 MMOL/L (24-32); TOTAL PROTEIN 5.5 G/DL (6.4-8.2); eGFR > 90 ML/MIN
[2021-10-15 07:15] LABS: ALKALINE PHOSPHATASE 70 IU/L (46-116)
[2021-10-15] MEDS: predniSONE 5mg tablet PO SCH (07:38)
[2021-10-15] MEDS: pantoprazole 40mg Tablet.DR PO SCH (07:38)
[2021-10-15] MEDS: ferrous sulfate 325mg tablet PO SCH (07:39)
[2021-10-15] MEDS: predniSONE 1 mg tablet PO SCH (07:39)
[2021-10-15] MEDS: folic acid 1mg tablet PO SCH (07:39)
[2021-10-15] MEDS: VANCOMYCIN 1GM/200ML IVPB 200 ML IV SCH ×2 (07:40→20:50)
--- NOTE | 2021-10-15 07:45 | NUR ---
Problems reprioritized. Patient report given, questions answered & plan of care reviewed with MARIELLE Dow.
[2021-10-15] MEDS: aspirin 325mg tablet PO SCH (07:47)
[2021-10-15 08:00] VITALS: BP 133/83
[2021-10-15 11:00] VITALS: BP 118/82
[2021-10-15] MEDS: cyclobenzaprine 10mg tablet PO PRN ×2 (16:28→21:17)
[2021-10-15 18:00] VITALS: BP 121/71
--- NOTE | 2021-10-15 18:28 | NUR ---
Gave repor to Sanjuanita PALOMARES.
--- NOTE | 2021-10-15 19:27 | NUR ---
Patient in room [facility] 340. I have received report from MARIELLE Dow and had the opportunity to ask questions and assume patient care.
[2021-10-15] MEDS: traZODone 50mg tablet PO SCH (20:50)
[2021-10-15] MEDS: sennosides 8.6mg tablet PO SCH (20:51)
[2021-10-16] VITALS: BP 108/72
[2021-10-16] MEDS: ampicillin inj 2 GM in normal saline 100ml IV soln 100 ML IV SCH ×6 (00:24→19:45)
[2021-10-16] MEDS: ipratropium 0.5 MG/2.5ML nebule IH SCH ×4 (03:00→20:55)
[2021-10-16] MEDS: oxyCODONE IR 5mg (immed. release) tablet PO PRN ×4 (05:01→20:41)
--- NOTE | 2021-10-16 06:26 | NUR ---
Patient in room [facility] 340. I have received report from Sandy RN and had the opportunity to ask questions and assume patient care.
--- NOTE | 2021-10-16 06:29 | NUR ---
Problems reprioritized. Patient report given, questions answered & plan of care reviewed with MARIELLE Bear and MARIELLE Ahmadi.
--- NOTE | 2021-10-16 06:35 | NUR ---
Patient in room [facility] 340. I have received report from Sandy PALOMARES TR and had the opportunity to ask questions and assume patient care.
[2021-10-16 07:00] VITALS: BP 124/71
--- NOTE | 2021-10-16 08:04 | NUR ---
Ampicillin was not administered on night guard. Hung but not unclamped. Pharmacy notified and said it was okay to give ampicillin that was already hung.
[2021-10-16] MEDS: aspirin 325mg tablet PO SCH (08:06)
[2021-10-16] MEDS: pantoprazole 40mg Tablet.DR PO SCH (08:07)
[2021-10-16] MEDS: predniSONE 1 mg tablet PO SCH (08:07)
[2021-10-16] MEDS: predniSONE 5mg tablet PO SCH (08:07)
[2021-10-16] MEDS: ibuprofen tablet 400 MG TABLET PO SCH ×3 (08:08→20:39)
[2021-10-16] MEDS: folic acid 1mg tablet PO SCH (08:08)
[2021-10-16] MEDS: ferrous sulfate 325mg tablet PO SCH (08:08)
[2021-10-16] MEDS: calcium carbonate 500mg tablet PO SCH ×3 (08:08→20:40)
[2021-10-16] MEDS: VANCOMYCIN 1GM/200ML IVPB 200 ML IV SCH ×2 (08:10→20:38)
[2021-10-16] MEDS: cyclobenzaprine 10mg tablet PO PRN ×2 (08:21→20:41)
[2021-10-16 09:32] LABS: ALANINE AMINOTRANSFERASE 13 U/L (12-78); ALBUMIN 2.4 G/DL (3.4-5.0); ALBUMIN/GLOBULIN RATIO 0.6 (1.1-1.5); ALKALINE PHOSPHATASE 66 IU/L (46-116); ANION GAP 8 (8-16); ASPARTATE AMINO TRANSFERASE 13 U/L (10-37); BASOPHILS # (AUTO) 0.1 X10'3 (0-0.2); BASOPHILS % (AUTO) 0.8 % (0-1); BILIRUBIN,TOTAL 0.3 MG/DL (0.1-1.0); BLOOD UREA NITROGEN 10 MG/DL (7-18); BUN/CREATININE RATIO 15.6 (6.6-38.0); CALCIUM 8.3 MG/DL (8.5-10.1); CHLORIDE 107 MMOL/L (99-107); CREATININE 0.64 MG/DL (0.40-0.90); EOSINOPHILS # (AUTO) 0.7 X10'3 (0-0.9); EOSINOPHILS % (AUTO) 7.9 % (0-6); GLUCOSE 103 MG/DL (70-104); HEMATOCRIT 29.6 % (35.0-45.0); HEMOGLOBIN 9.5 g/dl (12.0-16.0); LYMPHOCYTES # (AUTO) 3.3 X10'3 (1.1-4.8); LYMPHOCYTES % (AUTO) 36.3 % (21-51); MEAN CORPUSCULAR HEMOGLOBIN 25.6 PG (27.0-31.0); MEAN CORPUSCULAR HGB CONC 31.9 g/dL (33.0-36.5); MEAN CORPUSCULAR VOLUME 80.2 FL (78-98); MEAN PLATELET VOLUME 7.9 FL (7.4-10.4); MONOCYTES # (AUTO) 0.6 X10'3 (0-0.9); MONOCYTES % (AUTO) 6.7 % (2-12); NEUTROPHILS # (AUTO) 4.4 X10'3 (1.8-7.7); NEUTROPHILS % (AUTO) 48.3 % (42-75); PLATELET COUNT 547 X10'3 (140-440); POTASSIUM 3.5 MMOL/L (3.5-5.1); RED BLOOD COUNT 3.69 X10'6 (4.20-5.60); RED CELL DISTRIBUTION WIDTH 18.3 % (11.5-14.5); SODIUM 141 MMOL/L (135-145); TOTAL CARBON DIOXIDE 26.1 MMOL/L (24-32); TOTAL PROTEIN 6.2 G/DL (6.4-8.2); eGFR > 90 ML/MIN
[2021-10-16] MEDS ORDERED: LIDOcaine 1% 30ml preserv. free vial TOP ONE (11:40)
--- NOTE | 2021-10-16 11:45 | NUR ---
Latonia in room preforming a bedside needle aspiration of the R knee. All supplies provided. Patient tolerated procedure well.
[2021-10-16 12:00] VITALS: BP 109/68
--- NOTE | 2021-10-16 13:00 | NUR ---
Patient in room [facility] 340. I have received report from MARIELLE Ahmadi and had the opportunity to ask questions and assume patient care.
--- NOTE | 2021-10-16 13:06 | NUR ---
Problems reprioritized. Patient report given, questions answered & plan of care reviewed with UMESH rn.
--- NOTE | 2021-10-16 15:48 | NUR ---
Student documentation: I have reviewed all interventions, assessments performed and documented by Chema ROSARIO . Student Medication Administration: For all medications-passed, medications were reviewed, dispensed, administered and documented per hospital policy by Chema ROSARIO .
--- NOTE | 2021-10-16 18:30 | NUR ---
Problems reprioritized. Patient report given, questions answered & plan of care reviewed with MARIELLE Peterson.
[2021-10-16 20:04] VITALS: BP 138/83
[2021-10-16] MEDS: normal saline 1000ml 1,000 ML IV SCH (20:38)
[2021-10-16] MEDS: traZODone 50mg tablet PO SCH (20:38)
[2021-10-16] MEDS: sennosides 8.6mg tablet PO SCH (20:40)
[2021-10-17 00:12] VITALS: BP 105/70
[2021-10-17] MEDS: ampicillin inj 2 GM in normal saline 100ml IV soln 100 ML IV SCH ×6 (00:39→20:43)
[2021-10-17] MEDS: ipratropium 0.5 MG/2.5ML nebule IH SCH ×4 (02:54→20:27)
[2021-10-17 06:30] VITALS: BP 130/85
--- NOTE | 2021-10-17 06:30 | NUR ---
Patient in room [facility] 340. I have received report from MARIELLE Peterson and had the opportunity to ask questions and assume patient care.
[2021-10-17 06:34] LABS: BASOPHILS # (AUTO) 0.1 X10'3 (0-0.2); BASOPHILS % (AUTO) 1.2 % (0-1); EOSINOPHILS # (AUTO) 0.5 X10'3 (0-0.9); EOSINOPHILS % (AUTO) 7.2 % (0-6); HEMOGLOBIN 8.8 g/dl (12.0-16.0); LYMPHOCYTES % (AUTO) 38.8 % (21-51); MEAN CORPUSCULAR HEMOGLOBIN 25.9 PG (27.0-31.0); MEAN CORPUSCULAR HGB CONC 32.6 g/dL (33.0-36.5); MEAN CORPUSCULAR VOLUME 79.5 FL (78-98); MONOCYTES # (AUTO) 0.5 X10'3 (0-0.9); MONOCYTES % (AUTO) 6.1 % (2-12); NEUTROPHILS # (AUTO) 3.6 X10'3 (1.8-7.7); NEUTROPHILS % (AUTO) 46.7 % (42-75); PLATELET COUNT 515 X10'3 (140-440); RED CELL DISTRIBUTION WIDTH 18.5 % (11.5-14.5); WHITE BLOOD COUNT 7.7 X10'3 (4.5-11.0)
[2021-10-17 06:41] LABS: ALANINE AMINOTRANSFERASE 10 U/L (12-78); ALBUMIN 2.3 G/DL (3.4-5.0); ALBUMIN/GLOBULIN RATIO 0.7 (1.1-1.5); ALKALINE PHOSPHATASE 68 IU/L (46-116); ANION GAP 11 (8-16); ASPARTATE AMINO TRANSFERASE 13 U/L (10-37); BILIRUBIN,TOTAL 0.2 MG/DL (0.1-1.0); BLOOD UREA NITROGEN 12 MG/DL (7-18); CALCIUM 8.6 MG/DL (8.5-10.1); CHLORIDE 108 MMOL/L (99-107); GLUCOSE 79 MG/DL (70-104); POTASSIUM 3.7 MMOL/L (3.5-5.1); SODIUM 144 MMOL/L (135-145); TOTAL PROTEIN 5.6 G/DL (6.4-8.2); eGFR > 90 ML/MIN
[2021-10-17] MEDS: folic acid 1mg tablet PO SCH (07:40)
[2021-10-17] MEDS: ibuprofen tablet 400 MG TABLET PO SCH ×3 (07:40→21:37)
[2021-10-17] MEDS: aspirin 325mg tablet PO SCH (07:40)
[2021-10-17] MEDS: predniSONE 1 mg tablet PO SCH (07:40)
[2021-10-17] MEDS: pantoprazole 40mg Tablet.DR PO SCH (07:40)
[2021-10-17] MEDS: predniSONE 5mg tablet PO SCH (07:41)
[2021-10-17] MEDS: calcium carbonate 500mg tablet PO SCH ×3 (07:41→21:37)
[2021-10-17] MEDS: ferrous sulfate 325mg tablet PO SCH (07:41)
[2021-10-17] MEDS: cyclobenzaprine 10mg tablet PO PRN ×3 (07:41→21:37)
[2021-10-17] MEDS: oxyCODONE IR 5mg (immed. release) tablet PO PRN ×4 (07:42→21:38)
[2021-10-17] MEDS: VANCOMYCIN 1GM/200ML IVPB 200 ML IV SCH ×2 (09:38→21:36)
--- NOTE | 2021-10-17 09:49 | NUR ---
Reassessment: Pt continues on Vegetarian diet w/ 100% intake of meals since 10/15 meeting est nutrient needs at this time. LBM 10/16 receiving routine senna. No nutrition intervention implemented at this time, will continue to monitor. Recommendations: 1. Continue vegetarian diet 2. Folic acid while pt on methotrexate 3. Routine bowel care 4. Weekly scaled wts Addendum: 10/17/21 at [address] Amended: Links added.
[2021-10-17 11:00] VITALS: BP 106/58
[2021-10-17] MEDS: cholecalciferol (vitamin D3) 400 unit (10mcg) tablet PO SCH ×2 (14:16→21:38)
[2021-10-17 18:00] VITALS: BP 132/80
--- NOTE | 2021-10-17 18:10 | NUR ---
Problems reprioritized. Patient report given, questions answered & plan of care reviewed with MARIELLE Valerio.
[2021-10-17] MEDS: traZODone 50mg tablet PO SCH (21:36)
[2021-10-17] MEDS: sennosides 8.6mg tablet PO SCH (21:37)
[2021-10-18] VITALS: BP 125/68
[2021-10-18] MEDS: ampicillin inj 2 GM in normal saline 100ml IV soln 100 ML IV SCH ×7 (00:25→23:56)
[2021-10-18] MEDS: ipratropium 0.5 MG/2.5ML nebule IH SCH ×4 (02:40→22:38)
[2021-10-18 06:08] LABS: BASOPHILS # (AUTO) 0.1 X10'3 (0-0.2); BASOPHILS % (AUTO) 1.1 % (0-1); EOSINOPHILS # (AUTO) 0.6 X10'3 (0-0.9); EOSINOPHILS % (AUTO) 7.5 % (0-6); HEMATOCRIT 27.8 % (35.0-45.0); LYMPHOCYTES # (AUTO) 2.7 X10'3 (1.1-4.8); LYMPHOCYTES % (AUTO) 35.3 % (21-51); MEAN CORPUSCULAR HEMOGLOBIN 26.2 PG (27.0-31.0); MEAN CORPUSCULAR HGB CONC 32.5 g/dL (33.0-36.5); MEAN CORPUSCULAR VOLUME 80.6 FL (78-98); MONOCYTES # (AUTO) 0.7 X10'3 (0-0.9); MONOCYTES % (AUTO) 8.8 % (2-12); NEUTROPHILS # (AUTO) 3.7 X10'3 (1.8-7.7); NEUTROPHILS % (AUTO) 47.3 % (42-75); PLATELET COUNT 542 X10'3 (140-440); RED BLOOD COUNT 3.45 X10'6 (4.20-5.60); RED CELL DISTRIBUTION WIDTH 18.4 % (11.5-14.5); WHITE BLOOD COUNT 7.7 X10'3 (4.5-11.0)
[2021-10-18 06:23] LABS: ALANINE AMINOTRANSFERASE 12 U/L (12-78); ALBUMIN 2.3 G/DL (3.4-5.0); ALBUMIN/GLOBULIN RATIO 0.8 (1.1-1.5); ALKALINE PHOSPHATASE 66 IU/L (46-116); ANION GAP 8 (8-16); ASPARTATE AMINO TRANSFERASE 11 U/L (10-37); BILIRUBIN,TOTAL 0.1 MG/DL (0.1-1.0); BLOOD UREA NITROGEN 14 MG/DL (7-18); BUN/CREATININE RATIO 21.2 (6.6-38.0); CALCIUM 8.1 MG/DL (8.5-10.1); CHLORIDE 109 MMOL/L (99-107); CREATININE 0.66 MG/DL (0.40-0.90); GLUCOSE 83 MG/DL (70-104); POTASSIUM 4.6 MMOL/L (3.5-5.1); SODIUM 143 MMOL/L (135-145); TOTAL CARBON DIOXIDE 25.8 MMOL/L (24-32); TOTAL PROTEIN 5.2 G/DL (6.4-8.2); eGFR > 90 ML/MIN
[2021-10-18 07:00] VITALS: BP 111/64
[2021-10-18] MEDS: predniSONE 5mg tablet PO SCH (07:26)
[2021-10-18] MEDS: ferrous sulfate 325mg tablet PO SCH (07:26)
[2021-10-18] MEDS: oxyCODONE IR 5mg (immed. release) tablet PO PRN ×4 (07:26→20:59)
[2021-10-18] MEDS: predniSONE 1 mg tablet PO SCH (07:26)
[2021-10-18] MEDS: cholecalciferol (vitamin D3) 400 unit (10mcg) tablet PO SCH ×3 (07:26→20:58)
[2021-10-18] MEDS: ibuprofen tablet 400 MG TABLET PO SCH ×3 (07:27→20:58)
[2021-10-18] MEDS: folic acid 1mg tablet PO SCH (07:27)
[2021-10-18] MEDS: calcium carbonate 500mg tablet PO SCH ×3 (07:27→20:58)
[2021-10-18] MEDS: ETANERCEPT 50 MG/ML SQ SCH (07:27)
[2021-10-18] MEDS: pantoprazole 40mg Tablet.DR PO SCH (07:27)
[2021-10-18] MEDS: VANCOMYCIN 1GM/200ML IVPB 200 ML IV SCH ×2 (07:28→20:57)
[2021-10-18] MEDS: cyclobenzaprine 10mg tablet PO PRN ×2 (07:31→20:59)
[2021-10-18] MEDS: aspirin 325mg tablet PO SCH (07:31)
[2021-10-18 11:00] VITALS: BP 114/93
--- NOTE | 2021-10-18 13:42 | NUR ---
right knee dressing became wet during shower. rn redressed knee with gauze and DEBBIE wrap
[2021-10-18] MEDS: normal saline 1000ml 1,000 ML IV SCH (19:54)
[2021-10-18 20:00] VITALS: BP 113/81
[2021-10-18] MEDS: sennosides 8.6mg tablet PO SCH (20:57)
[2021-10-18] MEDS: traZODone 50mg tablet PO SCH (20:58)
[2021-10-19] VITALS: BP 111/65
[2021-10-19] MEDS: ipratropium 0.5 MG/2.5ML nebule IH SCH ×4 (02:21→19:43)
[2021-10-19] MEDS: ampicillin inj 2 GM in normal saline 100ml IV soln 100 ML IV SCH ×5 (03:49→19:27)
[2021-10-19 07:00] VITALS: BP 110/69
[2021-10-19] MEDS ORDERED: VANCOMYCIN LEVEL IV ONE (07:30)
[2021-10-19] MEDS: ferrous sulfate 325mg tablet PO SCH (07:34)
[2021-10-19] MEDS: oxyCODONE IR 5mg (immed. release) tablet PO PRN ×4 (07:34→21:53)
[2021-10-19] MEDS: VANCOMYCIN 1GM/200ML IVPB 200 ML IV SCH ×2 (07:34→20:39)
[2021-10-19] MEDS: cholecalciferol (vitamin D3) 400 unit (10mcg) tablet PO SCH ×3 (07:34→21:53)
[2021-10-19] MEDS: pantoprazole 40mg Tablet.DR PO SCH (07:34)
[2021-10-19] MEDS: folic acid 1mg tablet PO SCH (07:35)
[2021-10-19] MEDS: ibuprofen tablet 400 MG TABLET PO SCH ×3 (07:35→21:52)
[2021-10-19] MEDS: predniSONE 1 mg tablet PO SCH (07:35)
[2021-10-19] MEDS: calcium carbonate 500mg tablet PO SCH ×3 (07:35→21:52)
[2021-10-19] MEDS: predniSONE 5mg tablet PO SCH (07:35)
[2021-10-19] MEDS: aspirin 325mg tablet PO SCH (07:36)
[2021-10-19 10:26] LABS: ALANINE AMINOTRANSFERASE 11 U/L (12-78); ALBUMIN 2.4 G/DL (3.4-5.0); ALBUMIN/GLOBULIN RATIO 0.9 (1.1-1.5); ALKALINE PHOSPHATASE 61 IU/L (46-116); ANION GAP 11 (8-16); ASPARTATE AMINO TRANSFERASE 10 U/L (10-37); BILIRUBIN,TOTAL 0.1 MG/DL (0.1-1.0); BLOOD UREA NITROGEN 14 MG/DL (7-18); BUN/CREATININE RATIO 22.2 (6.6-38.0); CALCIUM 8.1 MG/DL (8.5-10.1); CHLORIDE 109 MMOL/L (99-107); CREATININE 0.63 MG/DL (0.40-0.90); GLUCOSE 68 MG/DL (70-104); POTASSIUM 4.2 MMOL/L (3.5-5.1); SODIUM 144 MMOL/L (135-145); TOTAL CARBON DIOXIDE 24.2 MMOL/L (24-32); TOTAL PROTEIN 5.1 G/DL (6.4-8.2); eGFR > 90 ML/MIN
[2021-10-19 10:34] LABS: VANCOMYCIN,TROUGH 17.5 UG/ML (6.0-14.0)
[2021-10-19 12:00] VITALS: BP 116/54
[2021-10-19] MEDS: cyclobenzaprine 10mg tablet PO PRN ×2 (12:35→21:53)
[2021-10-19 13:25] LABS: BASOPHILS # (AUTO) 0.1 X10'3 (0-0.2); BASOPHILS % (AUTO) 0.7 % (0-1); EOSINOPHILS # (AUTO) 0.2 X10'3 (0-0.9); EOSINOPHILS % (AUTO) 1.6 % (0-6); HEMATOCRIT 28.8 % (35.0-45.0); HEMOGLOBIN 9.1 g/dl (12.0-16.0); LYMPHOCYTES # (AUTO) 1.3 X10'3 (1.1-4.8); LYMPHOCYTES % (AUTO) 13.2 % (21-51); MEAN CORPUSCULAR HEMOGLOBIN 25.7 PG (27.0-31.0); MEAN CORPUSCULAR HGB CONC 31.5 g/dL (33.0-36.5); MEAN CORPUSCULAR VOLUME 81.6 FL (78-98); MEAN PLATELET VOLUME 7.9 FL (7.4-10.4); MONOCYTES # (AUTO) 0.6 X10'3 (0-0.9); MONOCYTES % (AUTO) 5.9 % (2-12); NEUTROPHILS # (AUTO) 7.7 X10'3 (1.8-7.7); NEUTROPHILS % (AUTO) 78.6 % (42-75); PLATELET COUNT 520 X10'3 (140-440); RED BLOOD COUNT 3.53 X10'6 (4.20-5.60); RED CELL DISTRIBUTION WIDTH 18.7 % (11.5-14.5); WHITE BLOOD COUNT 9.8 X10'3 (4.5-11.0)
[2021-10-19 18:00] VITALS: BP 120/60
[2021-10-19] MEDS: traZODone 50mg tablet PO SCH (21:52)
[2021-10-19] MEDS: sennosides 8.6mg tablet PO SCH (21:52)
[2021-10-20] VITALS: BP 129/64
[2021-10-20] MEDS: ampicillin inj 2 GM in normal saline 100ml IV soln 100 ML IV SCH ×6 (00:38→20:10)
[2021-10-20] MEDS: ipratropium 0.5 MG/2.5ML nebule IH SCH ×4 (02:13→20:05)
[2021-10-20 04:49] LABS: BASOPHILS # (AUTO) 0.1 X10'3 (0-0.2); BASOPHILS % (AUTO) 1.1 % (0-1); EOSINOPHILS # (AUTO) 0.5 X10'3 (0-0.9); EOSINOPHILS % (AUTO) 6.3 % (0-6); HEMATOCRIT 26.5 % (35.0-45.0); HEMOGLOBIN 8.4 g/dl (12.0-16.0); LYMPHOCYTES # (AUTO) 2.6 X10'3 (1.1-4.8); LYMPHOCYTES % (AUTO) 34.7 % (21-51); MEAN CORPUSCULAR HEMOGLOBIN 25.9 PG (27.0-31.0); MEAN CORPUSCULAR HGB CONC 31.7 g/dL (33.0-36.5); MEAN CORPUSCULAR VOLUME 81.7 FL (78-98); MONOCYTES % (AUTO) 13.2 % (2-12); NEUTROPHILS # (AUTO) 3.3 X10'3 (1.8-7.7); NEUTROPHILS % (AUTO) 44.7 % (42-75); PLATELET COUNT 454 X10'3 (140-440); RED BLOOD COUNT 3.25 X10'6 (4.20-5.60); RED CELL DISTRIBUTION WIDTH 19.1 % (11.5-14.5); WHITE BLOOD COUNT 7.4 X10'3 (4.5-11.0)
[2021-10-20 05:02] LABS: ALANINE AMINOTRANSFERASE 11 U/L (12-78); ALBUMIN 2.2 G/DL (3.4-5.0); ALBUMIN/GLOBULIN RATIO 0.9 (1.1-1.5); ANION GAP 8 (8-16); ASPARTATE AMINO TRANSFERASE 8 U/L (10-37); BILIRUBIN,TOTAL 0.1 MG/DL (0.1-1.0); BLOOD UREA NITROGEN 12 MG/DL (7-18); BUN/CREATININE RATIO 21.4 (6.6-38.0); CALCIUM 8.1 MG/DL (8.5-10.1); CHLORIDE 111 MMOL/L (99-107); CREATININE 0.56 MG/DL (0.40-0.90); GLUCOSE 119 MG/DL (70-104); POTASSIUM 3.8 MMOL/L (3.5-5.1); SODIUM 146 MMOL/L (135-145); TOTAL CARBON DIOXIDE 27.2 MMOL/L (24-32); TOTAL PROTEIN 4.7 G/DL (6.4-8.2); eGFR > 90 ML/MIN
[2021-10-20 05:34] LABS: ANISOCYTOSIS 2+; ELLIPTOCYTES FEW; PLATELET ESTIMATE INCREASED; POLYCHROMASIA 1+
[2021-10-20 07:00] VITALS: BP 88/54
[2021-10-20] MEDS: cholecalciferol (vitamin D3) 400 unit (10mcg) tablet PO SCH ×3 (07:59→21:36)
[2021-10-20] MEDS: VANCOMYCIN 1GM/200ML IVPB 200 ML IV SCH ×3 (07:59→21:35)
[2021-10-20] MEDS: oxyCODONE IR 5mg (immed. release) tablet PO PRN ×3 (08:00→16:35)
[2021-10-20] MEDS: ibuprofen tablet 400 MG TABLET PO SCH ×3 (08:00→21:36)
[2021-10-20] MEDS: pantoprazole 40mg Tablet.DR PO SCH (08:00)
[2021-10-20] MEDS: aspirin 325mg tablet PO SCH (08:00)
[2021-10-20] MEDS: calcium carbonate 500mg tablet PO SCH ×3 (08:00→21:36)
[2021-10-20] MEDS: ferrous sulfate 325mg tablet PO SCH (08:00)
[2021-10-20] MEDS: folic acid 1mg tablet PO SCH (08:00)
[2021-10-20] MEDS: predniSONE 5mg tablet PO SCH (08:01)
[2021-10-20] MEDS: predniSONE 1 mg tablet PO SCH (08:01)
[2021-10-20 09:12] VITALS: BP 90/59
[2021-10-20 11:00] VITALS: BP 111/74
[2021-10-20 18:00] VITALS: BP 112/64
[2021-10-20] MEDS: normal saline 1000ml 1,000 ML IV SCH (18:55)
[2021-10-20] MEDS: cyclobenzaprine 10mg tablet PO PRN (21:36)
[2021-10-20] MEDS: sennosides 8.6mg tablet PO SCH (21:36)
[2021-10-20] MEDS: traZODone 50mg tablet PO SCH (21:36)
[2021-10-20 21:53] VITALS: BP 112/64
[2021-10-21] VITALS: BP 104/51
[2021-10-21] MEDS: ampicillin inj 2 GM in normal saline 100ml IV soln 100 ML IV SCH ×7 (00:45→23:06)
[2021-10-21] MEDS: ipratropium 0.5 MG/2.5ML nebule IH SCH ×4 (02:54→20:21)
[2021-10-21 07:00] VITALS: BP 103/69
[2021-10-21] MEDS: ferrous sulfate 325mg tablet PO SCH (08:29)
[2021-10-21] MEDS: predniSONE 1 mg tablet PO SCH (08:29)
[2021-10-21] MEDS: predniSONE 5mg tablet PO SCH (08:29)
[2021-10-21] MEDS: calcium carbonate 500mg tablet PO SCH ×3 (08:29→21:52)
[2021-10-21] MEDS: cholecalciferol (vitamin D3) 400 unit (10mcg) tablet PO SCH ×3 (08:30→21:52)
[2021-10-21] MEDS: folic acid 1mg tablet PO SCH (08:30)
[2021-10-21] MEDS: VANCOMYCIN 1GM/200ML IVPB 200 ML IV SCH ×2 (08:30→20:40)
[2021-10-21] MEDS: aspirin 325mg tablet PO SCH (08:30)
[2021-10-21] MEDS: pantoprazole 40mg Tablet.DR PO SCH (08:30)
[2021-10-21] MEDS: ibuprofen tablet 400 MG TABLET PO SCH ×3 (08:30→21:53)
[2021-10-21 09:38] LABS: ALBUMIN 2.3 G/DL (3.4-5.0); ALBUMIN/GLOBULIN RATIO 0.8 (1.1-1.5); ALKALINE PHOSPHATASE 62 IU/L (46-116); ANION GAP 7 (8-16); ASPARTATE AMINO TRANSFERASE 9 U/L (10-37); BILIRUBIN,TOTAL 0.1 MG/DL (0.1-1.0); BLOOD UREA NITROGEN 9 MG/DL (7-18); BUN/CREATININE RATIO 12.7 (6.6-38.0); CALCIUM 8.3 MG/DL (8.5-10.1); CHLORIDE 111 MMOL/L (99-107); CREATININE 0.71 MG/DL (0.40-0.90); GLUCOSE 76 MG/DL (70-104); POTASSIUM 4.3 MMOL/L (3.5-5.1); SODIUM 145 MMOL/L (135-145); TOTAL CARBON DIOXIDE 27.4 MMOL/L (24-32); TOTAL PROTEIN 5.2 G/DL (6.4-8.2); eGFR 89 ML/MIN
[2021-10-21 09:48] LABS: ALANINE AMINOTRANSFERASE 12 U/L (12-78)
--- NOTE | 2021-10-21 10:00 | NUR ---
Reassessment: Pt continues on Vegetarian diet w/ 100% intake of meals since last RD assessment meeting est nutrient needs at this time. [facility] 10/16 receiving routine senna. No nutrition intervention implemented at this time, will continue to monitor. Recommendations: 1. Continue vegetarian diet 2. Folic acid while pt on methotrexate 3. Routine bowel care 4. Weekly scaled wts Addendum: 10/21/21 at [address] Amended: Links added.
[2021-10-21 11:43] LABS: C-REACTIVE PROTEIN 0.17 MG/DL (0.0-0.5)
[2021-10-21] MEDS: oxyCODONE IR 5mg (immed. release) tablet PO PRN ×3 (13:10→21:54)
[2021-10-21 18:00] VITALS: BP 138/85
[2021-10-21] MEDS: cyclobenzaprine 10mg tablet PO PRN (21:52)
[2021-10-21] MEDS: sennosides 8.6mg tablet PO SCH (21:53)
[2021-10-21] MEDS: traZODone 50mg tablet PO SCH (21:53)
[2021-10-22] VITALS: BP 101/54
[2021-10-22] MEDS: ipratropium 0.5 MG/2.5ML nebule IH SCH ×4 (02:54→20:00)
[2021-10-22] MEDS: ampicillin inj 2 GM in normal saline 100ml IV soln 100 ML IV SCH ×5 (03:12→20:38)
[2021-10-22 03:57] LABS: BASOPHILS # (AUTO) 0.1 X10'3 (0-0.2); BASOPHILS % (AUTO) 1.1 % (0-1); EOSINOPHILS # (AUTO) 0.5 X10'3 (0-0.9); EOSINOPHILS % (AUTO) 5.3 % (0-6); HEMATOCRIT 28.1 % (35.0-45.0); HEMOGLOBIN 8.8 g/dl (12.0-16.0); LYMPHOCYTES # (AUTO) 3.2 X10'3 (1.1-4.8); MEAN CORPUSCULAR HEMOGLOBIN 25.5 PG (27.0-31.0); MEAN CORPUSCULAR HGB CONC 31.4 g/dL (33.0-36.5); MEAN CORPUSCULAR VOLUME 81.3 FL (78-98); MEAN PLATELET VOLUME 8.2 FL (7.4-10.4); MONOCYTES # (AUTO) 0.9 X10'3 (0-0.9); MONOCYTES % (AUTO) 9.6 % (2-12); NEUTROPHILS # (AUTO) 4.9 X10'3 (1.8-7.7); PLATELET COUNT 476 X10'3 (140-440); RED BLOOD COUNT 3.45 X10'6 (4.20-5.60); RED CELL DISTRIBUTION WIDTH 18.5 % (11.5-14.5); WHITE BLOOD COUNT 9.6 X10'3 (4.5-11.0)
[2021-10-22 07:00] VITALS: BP 120/70
[2021-10-22] MEDS: cholecalciferol (vitamin D3) 400 unit (10mcg) tablet PO SCH ×3 (08:00→20:37)
[2021-10-22] MEDS: predniSONE 1 mg tablet PO SCH (08:00)
[2021-10-22] MEDS: VANCOMYCIN 1GM/200ML IVPB 200 ML IV SCH ×2 (08:00→20:38)
[2021-10-22] MEDS: predniSONE 5mg tablet PO SCH (08:00)
[2021-10-22] MEDS: calcium carbonate 500mg tablet PO SCH ×3 (08:00→20:37)
[2021-10-22] MEDS: pantoprazole 40mg Tablet.DR PO SCH (08:01)
[2021-10-22] MEDS: folic acid 1mg tablet PO SCH (08:01)
[2021-10-22] MEDS: ferrous sulfate 325mg tablet PO SCH (08:01)
[2021-10-22] MEDS: ibuprofen tablet 400 MG TABLET PO SCH ×3 (08:01→20:38)
[2021-10-22] MEDS: aspirin 325mg tablet PO SCH (08:01)
[2021-10-22 11:00] VITALS: BP 107/60
[2021-10-22] MEDS: cyclobenzaprine 10mg tablet PO PRN (13:45)
[2021-10-22] MEDS: oxyCODONE IR 5mg (immed. release) tablet PO PRN ×2 (15:31→20:37)
[2021-10-22 18:00] VITALS: BP 105/65
--- NOTE | 2021-10-22 18:51 | NUR ---
Problems reprioritized. Patient report given, questions answered & plan of care reviewed with MARIELLE GANDHI.
[2021-10-22] MEDS: normal saline 1000ml 1,000 ML IV SCH (18:55)
--- NOTE | 2021-10-22 19:13 | NUR ---
Patient in room [facility] 340. I have received report from MILE PALOMARES and had the opportunity to ask questions and assume patient care.
[2021-10-22] MEDS: sennosides 8.6mg tablet PO SCH (20:37)
[2021-10-22] MEDS: traZODone 50mg tablet PO SCH (20:37)
[2021-10-23] VITALS: BP 90/65
[2021-10-23] MEDS: ampicillin inj 2 GM in normal saline 100ml IV soln 100 ML IV SCH ×7 (00:40→23:49)
[2021-10-23] MEDS: ipratropium 0.5 MG/2.5ML nebule IH SCH ×4 (03:00→20:23)
--- NOTE | 2021-10-23 06:27 | NUR ---
Problems reprioritized. Patient report given, questions answered & plan of care reviewed with MILE PALOMARES.
[2021-10-23 06:35] LABS: BASOPHILS # (AUTO) 0.1 X10'3 (0-0.2); BASOPHILS % (AUTO) 1.2 % (0-1); EOSINOPHILS # (AUTO) 0.5 X10'3 (0-0.9); EOSINOPHILS % (AUTO) 5.3 % (0-6); HEMOGLOBIN 8.7 g/dl (12.0-16.0); LYMPHOCYTES # (AUTO) 3.5 X10'3 (1.1-4.8); LYMPHOCYTES % (AUTO) 38.4 % (21-51); MEAN CORPUSCULAR HEMOGLOBIN 26.2 PG (27.0-31.0); MEAN CORPUSCULAR HGB CONC 32.3 g/dL (33.0-36.5); MEAN CORPUSCULAR VOLUME 80.9 FL (78-98); MEAN PLATELET VOLUME 8.4 FL (7.4-10.4); MONOCYTES # (AUTO) 0.7 X10'3 (0-0.9); MONOCYTES % (AUTO) 8.2 % (2-12); NEUTROPHILS # (AUTO) 4.3 X10'3 (1.8-7.7); NEUTROPHILS % (AUTO) 46.9 % (42-75); PLATELET COUNT 468 X10'3 (140-440); RED BLOOD COUNT 3.34 X10'6 (4.20-5.60); RED CELL DISTRIBUTION WIDTH 19.1 % (11.5-14.5); WHITE BLOOD COUNT 9.1 X10'3 (4.5-11.0)
--- NOTE | 2021-10-23 06:40 | NUR ---
Received report on patient from Malina PALOMARES.
[2021-10-23 07:04] LABS: ANISOCYTOSIS 2+; MICROCYTOSIS 1+; PLATELET ESTIMATE INCREASED; SCHISTOCYTES FEW
[2021-10-23 07:36] VITALS: BP 91/57
[2021-10-23] MEDS: aspirin 325mg tablet PO SCH (08:25)
[2021-10-23] MEDS: ferrous sulfate 325mg tablet PO SCH (08:25)
[2021-10-23] MEDS: pantoprazole 40mg Tablet.DR PO SCH (08:25)
[2021-10-23] MEDS: folic acid 1mg tablet PO SCH (08:25)
[2021-10-23] MEDS: ibuprofen tablet 400 MG TABLET PO SCH ×3 (08:26→20:14)
[2021-10-23] MEDS: cholecalciferol (vitamin D3) 400 unit (10mcg) tablet PO SCH ×3 (08:26→20:13)
[2021-10-23] MEDS: predniSONE 5mg tablet PO SCH (08:26)
[2021-10-23] MEDS: predniSONE 1 mg tablet PO SCH (08:26)
[2021-10-23] MEDS: calcium carbonate 500mg tablet PO SCH ×3 (08:26→20:13)
[2021-10-23] MEDS: VANCOMYCIN 1GM/200ML IVPB 200 ML IV SCH ×2 (08:27→20:49)
[2021-10-23 11:00] VITALS: BP 105/67
[2021-10-23] MEDS: oxyCODONE IR 5mg (immed. release) tablet PO PRN ×3 (13:10→20:14)
--- NOTE | 2021-10-23 18:05 | NUR ---
Patient in room [facility] 340. I have received report from Octavio PALOMARES and had the opportunity to ask questions and assume patient care.
--- NOTE | 2021-10-23 18:05 | NUR ---
Problems reprioritized. Patient report given, questions answered & plan of care reviewed with PHOENIX PALOMARES.
[2021-10-23 19:00] VITALS: BP 127/87
[2021-10-23] MEDS: traZODone 50mg tablet PO SCH (20:13)
[2021-10-23] MEDS: cyclobenzaprine 10mg tablet PO PRN (20:14)
[2021-10-23] MEDS: sennosides 8.6mg tablet PO SCH (20:14)
[2021-10-24] VITALS: BP 100/59
[2021-10-24] MEDS: ipratropium 0.5 MG/2.5ML nebule IH SCH ×4 (02:57→20:09)
[2021-10-24] MEDS: ampicillin inj 2 GM in normal saline 100ml IV soln 100 ML IV SCH ×5 (04:28→21:26)
[2021-10-24] MEDS ORDERED: traZODone 50mg tablet PO SCH ×2 (04:57→21:00)
[2021-10-24 06:00] LABS: BASOPHILS # (AUTO) 0.1 X10'3 (0-0.2); BASOPHILS % (AUTO) 1.3 % (0-1); EOSINOPHILS # (AUTO) 0.4 X10'3 (0-0.9); EOSINOPHILS % (AUTO) 5.4 % (0-6); HEMATOCRIT 28.1 % (35.0-45.0); HEMOGLOBIN 8.9 g/dl (12.0-16.0); LYMPHOCYTES # (AUTO) 3.7 X10'3 (1.1-4.8); LYMPHOCYTES % (AUTO) 45.3 % (21-51); MEAN CORPUSCULAR HGB CONC 31.8 g/dL (33.0-36.5); MEAN CORPUSCULAR VOLUME 81.7 FL (78-98); MEAN PLATELET VOLUME 8.2 FL (7.4-10.4); MONOCYTES # (AUTO) 0.4 X10'3 (0-0.9); MONOCYTES % (AUTO) 5.3 % (2-12); NEUTROPHILS # (AUTO) 3.5 X10'3 (1.8-7.7); NEUTROPHILS % (AUTO) 42.7 % (42-75); PLATELET COUNT 476 X10'3 (140-440); RED BLOOD COUNT 3.44 X10'6 (4.20-5.60); RED CELL DISTRIBUTION WIDTH 18.8 % (11.5-14.5); WHITE BLOOD COUNT 8.2 X10'3 (4.5-11.0)
--- NOTE | 2021-10-24 06:14 | NUR ---
Problems reprioritized. Patient report given, questions answered & plan of care reviewed with Marek RN.
[2021-10-24 06:15] LABS: ALBUMIN 2.3 G/DL (3.4-5.0); ANION GAP 6 (8-16); BLOOD UREA NITROGEN 14 MG/DL (7-18); CALCIUM 8.3 MG/DL (8.5-10.1); CHLORIDE 108 MMOL/L (99-107); GLUCOSE 80 MG/DL (70-104); POTASSIUM 4.5 MMOL/L (3.5-5.1); SODIUM 141 MMOL/L (135-145); TOTAL CARBON DIOXIDE 27.3 MMOL/L (24-32); eGFR > 90 ML/MIN
[2021-10-24 06:46] LABS: ANISOCYTOSIS 2+; ELLIPTOCYTES FEW; MICROCYTOSIS 1+; PLATELET ESTIMATE NORMAL; POIKILOCYTOSIS FEW
--- NOTE | 2021-10-24 06:52 | NUR ---
Patient in room [facility] 340. I have received report from PHOENIX PALOMARES and had the opportunity to ask questions and assume patient care.
[2021-10-24 07:00] VITALS: BP_SYST 118; BP_SYST 121; BP_DIAS 62; BP_DIAS 74
[2021-10-24] MEDS ORDERED: VANCOMYCIN LEVEL IV ONE (07:30)
[2021-10-24] MEDS: oxyCODONE IR 5mg (immed. release) tablet PO PRN ×4 (08:28→21:34)
[2021-10-24] MEDS: pantoprazole 40mg Tablet.DR PO SCH (08:29)
[2021-10-24] MEDS: cyclobenzaprine 10mg tablet PO PRN ×2 (08:51→21:35)
[2021-10-24] MEDS: VANCOMYCIN 1GM/200ML IVPB 200 ML IV SCH ×2 (08:51→21:36)
[2021-10-24] MEDS: ibuprofen tablet 400 MG TABLET PO SCH ×3 (08:51→21:29)
[2021-10-24] MEDS: predniSONE 1 mg tablet PO SCH (08:52)
[2021-10-24] MEDS: predniSONE 5mg tablet PO SCH (08:52)
[2021-10-24] MEDS: ferrous sulfate 325mg tablet PO SCH (08:53)
[2021-10-24] MEDS: cholecalciferol (vitamin D3) 400 unit (10mcg) tablet PO SCH ×3 (08:53→21:28)
[2021-10-24] MEDS: folic acid 1mg tablet PO SCH (08:53)
[2021-10-24] MEDS: aspirin 325mg tablet PO SCH (08:53)
[2021-10-24] MEDS: calcium carbonate 500mg tablet PO SCH ×3 (08:53→21:28)
[2021-10-24 11:44] VITALS: BP 132/77
--- NOTE | 2021-10-24 18:20 | NUR ---
Problems reprioritized. Patient report given, questions answered & plan of care reviewed with ROSENDO PALOMARES.
--- NOTE | 2021-10-24 18:30 | NUR ---
Patient in room [facility] 340. I have received report from Marek PALOMARES and had the opportunity to ask questions and assume patient care.
[2021-10-24] MEDS: normal saline 1000ml 1,000 ML IV SCH (18:55)
[2021-10-24 19:00] VITALS: BP 106/70
[2021-10-24] MEDS ORDERED: traZODone 150mg tablet PO SCH (21:00)
[2021-10-24] MEDS: sennosides 8.6mg tablet PO SCH (21:29)
[2021-10-25] VITALS: BP 124/72
[2021-10-25] MEDS: ampicillin inj 2 GM in normal saline 100ml IV soln 100 ML IV SCH ×3 (00:40→08:21)
[2021-10-25] MEDS: ipratropium 0.5 MG/2.5ML nebule IH SCH ×2 (03:00→08:58)
[2021-10-25 04:34] LABS: BASOPHILS # (AUTO) 0.1 X10'3 (0-0.2); BASOPHILS % (AUTO) 1.2 % (0-1); EOSINOPHILS # (AUTO) 0.5 X10'3 (0-0.9); EOSINOPHILS % (AUTO) 4.9 % (0-6); HEMATOCRIT 28.6 % (35.0-45.0); HEMOGLOBIN 9.1 g/dl (12.0-16.0); LYMPHOCYTES # (AUTO) 3.2 X10'3 (1.1-4.8); LYMPHOCYTES % (AUTO) 34.1 % (21-51); MEAN CORPUSCULAR HGB CONC 31.9 g/dL (33.0-36.5); MEAN CORPUSCULAR VOLUME 81.4 FL (78-98); MEAN PLATELET VOLUME 8.3 FL (7.4-10.4); MONOCYTES # (AUTO) 0.7 X10'3 (0-0.9); MONOCYTES % (AUTO) 7.2 % (2-12); NEUTROPHILS # (AUTO) 4.9 X10'3 (1.8-7.7); NEUTROPHILS % (AUTO) 52.6 % (42-75); PLATELET COUNT 466 X10'3 (140-440); RED BLOOD COUNT 3.51 X10'6 (4.20-5.60); RED CELL DISTRIBUTION WIDTH 18.8 % (11.5-14.5); WHITE BLOOD COUNT 9.4 X10'3 (4.5-11.0)
[2021-10-25 04:59] LABS: ALANINE AMINOTRANSFERASE 13 U/L (12-78); ALBUMIN 2.5 G/DL (3.4-5.0); ALBUMIN/GLOBULIN RATIO 0.9 (1.1-1.5); ALKALINE PHOSPHATASE 68 IU/L (46-116); ANION GAP 7 (8-16); ASPARTATE AMINO TRANSFERASE 12 U/L (10-37); BILIRUBIN,TOTAL 0.1 MG/DL (0.1-1.0); BLOOD UREA NITROGEN 12 MG/DL (7-18); BUN/CREATININE RATIO 19.4 (6.6-38.0); CALCIUM 8.2 MG/DL (8.5-10.1); CHLORIDE 107 MMOL/L (99-107); CREATININE 0.62 MG/DL (0.40-0.90); GLUCOSE 89 MG/DL (70-104); POTASSIUM 3.9 MMOL/L (3.5-5.1); SODIUM 142 MMOL/L (135-145); TOTAL PROTEIN 5.3 G/DL (6.4-8.2); eGFR > 90 ML/MIN
--- NOTE | 2021-10-25 06:30 | NUR ---
Problems reprioritized. Patient report given, questions answered & plan of care reviewed with Marek RN.
[2021-10-25 07:00] VITALS: BP 111/69
[2021-10-25] MEDS: VANCOMYCIN 1GM/200ML IVPB 200 ML IV SCH (08:00)
[2021-10-25] MEDS: oxyCODONE IR 5mg (immed. release) tablet PO PRN (08:19)
[2021-10-25] MEDS: predniSONE 5mg tablet PO SCH (08:19)
[2021-10-25] MEDS: cholecalciferol (vitamin D3) 400 unit (10mcg) tablet PO SCH (08:20)
[2021-10-25] MEDS: aspirin 325mg tablet PO SCH (08:20)
[2021-10-25] MEDS: folic acid 1mg tablet PO SCH (08:20)
[2021-10-25] MEDS: ibuprofen tablet 400 MG TABLET PO SCH (08:20)
[2021-10-25] MEDS: calcium carbonate 500mg tablet PO SCH (08:20)
[2021-10-25] MEDS: predniSONE 1 mg tablet PO SCH (08:20)
[2021-10-25] MEDS: ferrous sulfate 325mg tablet PO SCH (08:21)
[2021-10-25] MEDS: pantoprazole 40mg Tablet.DR PO SCH (08:21)
[2021-10-25] MEDS: ETANERCEPT 50 MG/ML SQ SCH (08:26)
--- NOTE | 2021-10-25 08:32 | NUR ---
Spoke with OR charge and Dr. Doty about staple removal of patient. MD will evaluate just after 0900. MD does not want patient to leave until morning rounding on patient.
--- NOTE | 2021-10-25 12:32 | NUR ---
Patient report called to accepting facility, all questions answered at this time. Patient left with all belongings.
== END 2021-10-25 09:40 | DRG 464 ==
LOC: SUR 3N 16:45 → UNDOADMIN 16:45 → SUR 3N 10-09 07:45
PROVIDERS: ADMIT Orthopaedic Surgery; ATTEND Orthopaedic Surgery
PROC: 3E0U029 Introduction of Other Anti-infective into Joints, Open Approach (ICD-10-PCS; 2021-10-07)
PROC: 0SPC09Z Removal of Liner from Right Knee Joint, Open Approach (ICD-10-PCS; 2021-10-07)
PROC: 0SUC09Z Supplement Right Knee Joint with Liner, Open Approach (ICD-10-PCS; 2021-10-07)
PROC: 3E0T3BZ Introduction of Anesthetic Agent into Peripheral Nerves and Plexi, Percutaneous Approach (ICD-10-PCS; 2021-10-07)
PROC: 0JBN0ZZ Excision of Right Lower Leg Subcutaneous Tissue and Fascia, Open Approach (ICD-10-PCS; principal; 2021-10-07 07:16)
PROC: 30233N1 Transfusion of Nonautologous Red Blood Cells into Peripheral Vein, Percutaneous Approach (ICD-10-PCS; 2021-10-12)
PROC: 02HV33Z Insertion of Infusion Device into Superior Vena Cava, Percutaneous Approach (ICD-10-PCS; 2021-10-13)
PROC: B548ZZA Ultrasonography of Superior Vena Cava, Guidance (ICD-10-PCS; 2021-10-13)
DX: T84.53XA Infection and inflammatory reaction due to internal right knee prosthesis, initial encounter (principal); D84.9 Immunodeficiency, unspecified; T81.31XA Disruption of external operation (surgical) wound, not elsewhere classified, initial encounter; Z20.822 Contact with and (suspected) exposure to COVID-19; B19.20 Unspecified viral hepatitis C without hepatic coma; F31.9 Bipolar disorder, unspecified; F19.10 Other psychoactive substance abuse, uncomplicated; B95.2 Enterococcus as the cause of diseases classified elsewhere; M05.761 Rheumatoid arthritis with rheumatoid factor of right knee without organ or systems involvement; Y83.1 Surgical operation with implant of artificial internal device as the cause of abnormal reaction of the patient, or of later complication, without mention of misadventure at the time of the procedure; Y92.89 Other specified places as the place of occurrence of the external cause; Z59.02 Unsheltered homelessness; M65.9 Synovitis and tenosynovitis, unspecified
CPT/HCPCS: 36415; 36430; 36569; 76942; 80048; 80051; 80053; 80202; 81003; 82565; 82948; 85008; 85025; 85027; 85610; 85651; 85730; 86140; 86885; 86900; 86901; 86920; 87070; 87075; 87077; 87081; 87186; 87635; 89051; 94640; 94760; 97161; 97530; A6449; A7000; C1713; C1758; C1776; G0378; J0290; J0690; J0735; J1170; J1885; J1940; J2250; J2704; J2795; J3010; J3370; J3480; J3490; J7030; J7120; J7512; J8610; P9016